=== PATIENT | male | born 1955 | race African-American/Black ===

== ENCOUNTER 2017-04-12 14:51 | Inpatient (IN) ==
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
--- NOTE | 2017-04-12 15:55 | XRay Report ---
XR chest 1V portable Indication: Cardiomegaly Comparison: None. Technique: Portable AP chest was performed. Findings: The heart size appears within normal limits. Pulmonary vasculature demonstrates no specific abnormality. Hilar structures demonstrate fairly symmetric appearance. The lungs appear clear. Bones and soft tissues demonstrate no evidence of acute pathology. Right-sided rotator cuff tear is suggested. Impression: 1. No evidence of cardiomegaly. 04/12/2017 3:52 PM PROCEDURE INTERPRETED AT [facility] DEPARTMENT OF RADIOLOGY Final Report Signed by: Dr. Juan José Pinto
--- NOTE | 2017-04-12 15:58 | CT Report ---
CT head/brain wo con Indication: Hemiparesis. Laterality not specified Comparison: CT head 03/20/2006 Technique: CT of the brain was performed without administration of intravenous contrast. The CT examination was performed using one or more of the following dose reduction techniques: Automatic exposure control, adjustment of the mA and kV according to patient size, use of acute or iterative reconstruction techniques. Findings: There is no evidence of acute intracranial mass, hemorrhage, or infarction. Generalized cerebral atrophy is present. Remote infarction involving the right parietal cortex and white matter is stable. Areas of decreased attenuation within the periventricular white matter and cerebral white matter are present which could be compatible with microvascular ischemia. The basal cisterns are patent. No significant abnormality is demonstrated to involve the posterior fossa or cerebellum. Orbits and globes demonstrate no evidence of significant pathology. The paranasal sinuses are clear. No significant abnormality is demonstrated to involve the mastoid air cells. The calvarium and overlying soft tissues demonstrate no evidence of acute pathology. Impression: 1. No CT evidence of acute intracranial pathology. Remote right parietal infarct has changed little since comparison study. No other sources of hemiparesis are demonstrated. MRI brain without intravenous contrast administration is recommended to exclude acute ischemia. 04/12/2017 3:54 PM PROCEDURE INTERPRETED AT [facility] DEPARTMENT OF RADIOLOGY Final Report Signed by: Dr. Juan José Pinto
[2017-04-12] MEDS ORDERED: PROMETHAZINE 25 MG/1 ML VIAL IM PRN (16:14)
[2017-04-12] MEDS ORDERED: guaiFENesin/DM ER 600-30 MG TABLET PO PRN (16:14)
[2017-04-12] MEDS ORDERED: ONDANSETRON 4 MG/2 ML VIAL IV PRN (16:14)
[2017-04-12] MEDS ORDERED: GLUCAGON 1 MG VIAL IM PRN (16:14)
[2017-04-12] MEDS ORDERED: LABETALOL 20 MG/4 ML SYRINGE IV PRN (16:14)
[2017-04-12] MEDS ORDERED: DEXTROSE 50% 25 GM/50 ML VIAL IV PRN (16:14)
[2017-04-12] MEDS ORDERED: ACETAMINOPHEN 325 MG TABLET PO PRN (16:14)
[2017-04-12] MEDS ORDERED: diphenhydrAMINE CAP 25 MG CAPSULE PO PRN (16:14)
[2017-04-12] MEDS ORDERED: MORPHINE 2 MG/1 ML SYRINGE IV PRN (16:14)
[2017-04-12] MEDS ORDERED: DOCUSATE SODIUM 100 MG CAPSULE PO PRN (16:14)
--- NOTE | 2017-04-12 16:19 | Event Note ---
I have seen and examined the patient an I agree with the assessment and plan as outline by Makayla HENRY. Mr King presents with hemiplegia. CT negative for acute stroke. Will admit to observation and obtain an MRI, echo, carotid US. Consult Neurology. Basic labs have not returned at the time of this note.
--- NOTE | 2017-04-12 16:29 | EKG Report ---
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
[2017-04-12 16:32] LABS: Basophils % 0.5 % (0.0-0.8); Eosinophils # 0.2 10*3/uL (0.0-0.87); Eosinophils % 2.8 % (0.00-10.9); Hematocrit 46.4 VOL% (42.0-52.0); Hemoglobin 16.2 GM/DL (14.0-18.0); Immature Granulocytes % 0.5 %; Immature Granulocytes Absolute 0.03 #; Lymphocytes # 1.8 10*3/uL (1.4-4.0); Lymphocytes % 29.2 % (21.2-54.2); Mean Corpuscular HGB Conc 34.9 GM/DL (32-36); Mean Corpuscular Hemoglobin 31 PG (27-34); Mean Corpuscular Volume 87.5 FL (87-102); Mean Platelet Volume 11.2 FL (9.6-12.0); Monocytes # 0.7 10*3/uL (0.11-0.8); Neutrophils # 3.4 10*3/uL (1.4-7.4); Platelet Count 221 T/CUMM (130-400); Red Cell Distribution Width 12.4 % (9.3-17.3)
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
[2017-04-12 16:47] LABS: PT Patient Result 10.5 SECS; Partial Thromboplastin Time 24.3 SECS (0-40)
[2017-04-12 16:48] LABS: Apearance,Urine CLEAR (Clear); Bilirubin,Urine Negative (Negative); Blood, Urine Negative (Negative); Glucose,Urine (UA) >=500 mg/dL (Negative); Ketones,Urine Negative (Negative); Mucus,Urine Occasional /LPF (Occasional); Nitrite,Urine Negative (Negative); Protein,Urine Negative; RBC,Urine 1 /HPF (0-4); Squamous Epithelial Cell,Urine Occasional /HPF (0-10); Urine Color Straw (Yellow); Urine Specific Gravity 1.028 (1.001-1.035); Urine Urobilinogen < 2.0 EU/DL (0.2-1.0); WBC,Urine <1 /HPF (0-6)
[2017-04-12 16:59] LABS: Alanine Aminotransferase 49 U/L (16-61); Albumin 3.6 G/DL (3.4-5.0); Alkaline Phosphatase 231 U/L (45-117); Aspartate Amino Transferase 31 U/L (0-37); Blood Urea Nitrogen 19 MG/DL (7-18); Calcium 9.3 MG/DL (8.5-10.1); Cholesterol 168 MG/DL (50-200); HDL Cholesterol 32 MG/DL (40-60); Osmolality,Calculated 291.5 MOS/KG (273-304); Potassium 4.8 MMOL/L (3.5-5.1); Risk Ratio 5.25; Sodium 132 MMOL/L (136-145); Total Protein 7.8 G/DL (6.4-8.3); Triglycerides 469 MG/DL (2-150); Troponin I Only < 0.015 NG/ML (0.00-0.045); VLDL CHOLESTEROL 93.8 MG/DL
[2017-04-12 17:02] LABS: Glucose 568 MG/DL (74-106)
[2017-04-12] MEDS ORDERED: INSULIN LISPRO 100 UNIT/ML SUBCUT ONE ×2 (17:02→17:23)
[2017-04-12 17:03] LABS: Barbiturates Screen,Urine Negative (Negative); Benzodiazepines Screen,Urine Negative (Negative); Cannabinoid Screen,Urine Negative (Negative); Opiate Screen,Urine Negative (Negative); Phencyclidine Screen,Urine Negative (Negative)
--- NOTE | 2017-04-12 17:38 | Ultrasound Report ---
US carotid duplex BI Indication: Acute neurologic change. Comparison: None. Technique: Using transcutaneous probe, routine carotid arterial duplex ultrasound performed. Ultrasound images were captured and stored. Estimation of stenosis will be made using indirect NASCET criteria. Ultrasound images were captured and stored. Findings: Grayscale and color Doppler findings: Calcified plaque is demonstrated within the right carotid artery bulb. This to some degree shadows the color flow within the bulb. Transverse images suggest moderate stenosis of the bulb. The left carotid artery bulb additionally demonstrates presence of minimally echogenic plaque as well as some areas of echolucent plaque. Transverse images suggest minimal stenosis. Peak systolic velocities are as follows (centimeters per second): Right CCA: 66. Right proximal ICA: 37. Right distal ICA: 67. Right ICA/CCA ratio: 1.0. Left CCA: 57. Left proximal ICA: 39. Left distal ICA: 55. Left ICA/CCA ratio: 1.0. External carotid arteries: External carotid arteries are bilaterally patent. Vertebral arteries: Vertebral arteries bilaterally demonstrate antegrade flow. Impression: 1.No hemodynamically significant stenosis is estimated to involve either carotid arterial system. 04/12/2017 5:33 PM PROCEDURE INTERPRETED AT [facility] DEPARTMENT OF RADIOLOGY Final Report Signed by: Dr. Juan José Pinto
[2017-04-12] MEDS: ASPIRIN 325 MG TABLET PO SCH (18:32)
[2017-04-12] MEDS: SODIUM CHLORIDE 0.9% 1,000 ML IV SCH (18:33)
[2017-04-12] MEDS: POLYETHYLENE GLYCOL POWDER 17 GM PACK PO SCH (18:33)
[2017-04-12] MEDS: TAMSULOSIN 0.4 MG CAPSULE PO SCH (18:33)
[2017-04-12] MEDS: CLOPIDOGREL 75 MG TABLET PO SCH ×2 (18:34→19:22)
[2017-04-12] MEDS: LISINOPRIL 20 MG TABLET PO SCH (18:34)
[2017-04-12] MEDS: FELODIPINE 5 MG TABLET PO SCH (18:38)
[2017-04-12] MEDS: PANTOPRAZOLE 40 MG TABLET PO SCH (18:39)
[2017-04-12 19:29] LABS: Troponin I Only < 0.015 NG/ML (0.00-0.045)
[2017-04-12] MEDS ORDERED: INSULIN GLARGINE 100 UNIT/ML SUBCUT SCH (21:00)
[2017-04-12] MEDS ORDERED: ATORVASTATIN 40 MG TABLET PO SCH (21:00)
[2017-04-12] MEDS: MAGNESIUM CHLORIDE 64 MG TABLET PO SCH (21:29)
[2017-04-12] MEDS: levETIRAcetam 500 MG TABLET PO SCH (21:29)
[2017-04-12] MEDS: INSULIN REGULAR 100 UNIT/ML SUBCUT SCH (21:30)
[2017-04-12 22:34] LABS: Troponin I Only < 0.015 NG/ML (0.00-0.045)
[2017-04-13 02:58] LABS: Basophils % 0.5 % (0.0-0.8); Eosinophils # 0.2 10*3/uL (0.0-0.87); Eosinophils % 3.3 % (0.00-10.9); Hematocrit 41.2 VOL% (42.0-52.0); Hemoglobin 14.3 GM/DL (14.0-18.0); Immature Granulocytes % 0.5 %; Immature Granulocytes Absolute 0.03 #; Lymphocytes % 34.1 % (21.2-54.2); Mean Corpuscular HGB Conc 34.7 GM/DL (32-36); Mean Corpuscular Hemoglobin 30 PG (27-34); Mean Corpuscular Volume 87.1 FL (87-102); Mean Platelet Volume 11.5 FL (9.6-12.0); Monocytes # 0.7 10*3/uL (0.11-0.8); Monocytes % 11.5 % (1.7-12.7); Neutrophils # 2.9 10*3/uL (1.4-7.4); Neutrophils % 50.1 % (38.7-73.9); Platelet Count 204 T/CUMM (130-400); Red Blood Count 4.73 MC/CUMM (3.8-5.5); Red Cell Distribution Width 12.4 % (9.3-17.3); White Blood Count 5.8 T/CUMM (4-12)
[2017-04-13 03:57] LABS: Calcium 8.8 MG/DL (8.5-10.1); Magnesium 1.6 MG/DL (1.8-2.4); Potassium 4.3 MMOL/L (3.5-5.1); Thyroid Stimulating Hormone 0.694 uIU/ml (0.358-3.74)
[2017-04-13 04:00] LABS: Risk Ratio 4.75; VLDL CHOLESTEROL 71.6 MG/DL
[2017-04-13] MEDS: PANTOPRAZOLE 40 MG TABLET PO SCH (08:59)
[2017-04-13] MEDS: MAGNESIUM CHLORIDE 64 MG TABLET PO SCH (08:59)
[2017-04-13] MEDS: ASPIRIN 325 MG TABLET PO SCH (08:59)
[2017-04-13] MEDS: TAMSULOSIN 0.4 MG CAPSULE PO SCH (08:59)
[2017-04-13] MEDS: levETIRAcetam 500 MG TABLET PO SCH (08:59)
[2017-04-13] MEDS: CLOPIDOGREL 75 MG TABLET PO SCH (08:59)
[2017-04-13] MEDS: SODIUM CHLORIDE 0.9% 1,000 ML IV SCH (09:00)
[2017-04-13] MEDS: LISINOPRIL 20 MG TABLET PO SCH (09:00)
[2017-04-13] MEDS ORDERED: MAGNESIUM SULF RIDER 4 GM in PREMIX 1 EACH IV ONE (09:00)
[2017-04-13] MEDS: POLYETHYLENE GLYCOL POWDER 17 GM PACK PO SCH (09:01)
[2017-04-13] MEDS: FELODIPINE 5 MG TABLET PO SCH (09:01)
[2017-04-13] MEDS: INSULIN REGULAR 100 UNIT/ML SUBCUT SCH (09:47)
--- NOTE | 2017-04-13 12:24 | Magnetic Resonance Report ---
Exam: MR head/brain wo con Date: 04/13/2017 4:19 PM Comparison: 03/18/2016, CT brain 04/12/2017 Indication: Left-sided weakness Technique:[Multiple acquisitions were obtained including sagittal T1, coronal T2, and axial ADC, diffusion, FLAIR, T2, GRE, and T1 scans without contrast only. Scans were obtained on a 1.5 Jovana magnet.] Findings: The ventricles are normal in size with no midline displacement. The pituitary has a normal appearance and the cerebellar tonsils are normal in their location. No acute infarction is identified on the diffusion scans. Rather there is a large chronic right temporal, parietal, and occipital lobe infarction. Additional chronic infarcts in the right frontal lobe/corpus callosum, right frontal lobe deep white matter location, and right cerebellum. No evidence of hemorrhage, mass, extracerebral collection. Extensive atrophy and FLAIR/T2 hyperintensities. No acute findings in the paranasal sinuses, orbits, temporal bones, or [place] post[place] of [place]. Impression: No acute infarction identified on the diffusion scans. Rather there are multiple chronic infarcts as above noted. Persistent atrophy and extensive microvascular disease. PROCEDURE INTERPRETED AT [facility] DEPARTMENT OF RADIOLOGY Final Report Signed by: Dr. Emelyn Tadeo
--- NOTE | 2017-04-13 12:59 | Discharge Summary ---
Hospital Course - Hospital Course Hospital Course: Mr Velarde was admitted for evaluation of left sided weakness. 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 MRI of his brain revealed no acute infarctions. Carotid US was unremarkable. He will continue his medications which are optimal at discharge. By discharge she was at baseline had met maximum benefit of hospitalization. I spent 36 minutes coordinating this discharge. - Time spent with patient Time with patient DS: Greater than 30 minutes Discharge Plan - Discharge Data Disposition: Disch To Home/Self Care Condition at Discharge: Stable Discharge Diet: advance to your usual diet Activity: resume usual activities as tolerated Hygiene: no restrictions - Discharge Medications Continue Lisinopril 20 mg PO DAILY Metformin HCl [Metformin HCl ER] 1,000 mg PO BID Clopidogrel [Plavix] 75 mg PO DAILY Felodipine [Plendil] 10 mg PO DAILY levETIRAcetam TAB [Keppra Tab] 500 mg PO BID #120 tablet Pantoprazole Tab [Protonix Tab] 40 mg PO BID #60 tablet Polyethylene Glycol Powder [Miralax] 17 gm PO DAILY #12 pack Magnesium Chloride [Slow Mag] 64 mg PO BID #60 tablet Insulin Glargine [Lantus] 15 unit SUBCUT BEDTIME Atorvastatin [Lipitor] 40 mg PO BEDTIME Aspirin Tab 325 mg PO DAILY tablet Tamsulosin [Flomax] 0.4 mg PO DAILY capsule Promethazine Tab [Phenergan Tab] 25 mg PO Q6H PRN PRN Reason: Nausea HYDROcodone/ACETAMIN 10-325 [[place] 10-325] 1 tablet PO Q6H PRN PRN Reason: Pain - Follow Up or Referral - Forms/Instructions Exam - Constitutional Vitals: Period Temp Pulse Resp BP Sys/Horvath Pulse Ox Last 24 Hr 97.5 F-98.6 F 66-95 20-20 101-162/72-78 95-97 General appearance: normal weight, no acute distress - Head Head exam: Present: normal inspection, normocephalic, atraumatic - Eye Eye exam: Present: EOMI Pupils: Present: TACHO - ENT ENT exam: Present: normal exam - Neck Neck exam: Present: normal inspection - Respiratory Respiratory exam: Present: clear to auscultation bilaterally. Absent: accessory muscle use, prolonged expiratory phase, wheezes - Cardiovascular Cardiovascular exam: Present: regular rate and rhythm. Absent: bradycardia, irregular rhythm, systolic murmur - GI/Abdominal GI/Abdominal exam: Present: normal bowel sounds. Absent: ascites, distended, hypoactive bowel sounds, tenderness - Extremities Exam Extremities exam: Present: normal inspection Discharge Results Labs on day of discharge: Labs from last 24 hours 04/13/17 04/13/17 04/13/17 07:22 01:50 01:50 WBC RBC Hgb Hct MCV MCH MCHC RDW Plt Count MPV Neut % (Auto) Lymph % (Auto) [place] % (Auto) Eos % (Auto) Baso % (Auto) Neut # (Auto) Lymph # (Auto) [place] # (Auto) Eos # (Auto) Baso # (Auto) Immature Gran % Nucleated RBC % Immature Gran # Nucleated RBCs # INR PT Patient/Control Mix Circ Anticoag PTT Sodium 136 Potassium 4.3 Chloride 101 Carbon Dioxide 26 Anion Gap 13.3 BUN 20 H Creatinine 1.30 GFR Calculation 82 BUN/Creatinine Ratio 15.00 Glucose 290 H POC Glucose 405 H Hemoglobin A1c Calculated Osmolality 285.0 Calcium 8.8 Magnesium 1.6 L Total Bilirubin AST ALT Alkaline Phosphatase Troponin I Total Protein Albumin Globulin Albumin/Globulin Ratio Triglycerides 358 H Cholesterol 133 LDL Cholesterol 53.0 VLDL Cholesterol 71.6 HDL Cholesterol 28 L Heart Disease Risk Ratio 4.75 TSH 3rd Generation 0.694 Urine Color Urine Appearance Urine pH Ur Specific [place] Urine Protein Urine Glucose (UA) Urine Ketones Urine Blood Urine Nitrate Urine Bilirubin Urine Urobilinogen Urine Leukocytes Urine RBC Urine WBC Ur Squamous Epith Cells Urine Mucus Ur Culture Indicated? Urine Opiates Screen Ur Barbiturates Screen Ur Phencyclidine Scrn U Amphetamine/Methamph U Benzodiazepines Scrn U Cocaine Metab Screen U Cannabinoids Screen Serum Alcohol 04/13/17 04/12/17 04/12/17 01:50 23:46 21:47 WBC 5.8 RBC 4.73 Hgb 14.3 Hct 41.2 L MCV 87.1 MCH 30 MCHC 34.7 RDW 12.4 Plt Count 204 MPV 11.5 Neut % (Auto) 50.1 Lymph % (Auto) 34.1 Baxter % (Auto) 11.5 Eos % (Auto) 3.3 Baso % (Auto) 0.5 Neut # (Auto) 2.9 Lymph # (Auto) 2.0 Baxter # (Auto) 0.7 Eos # (Auto) 0.2 Baso # (Auto) 0.0 Immature Gran % 0.5 Nucleated RBC % 0.0 Immature Gran # 0.03 Nucleated RBCs # 0.00 INR PT Patient/Control Mix Circ Anticoag PTT Sodium Potassium Chloride Carbon Dioxide Anion Gap BUN Creatinine GFR Calculation BUN/Creatinine Ratio Glucose 437 POC Glucose 323 H Hemoglobin A1c Calculated Osmolality Calcium Magnesium Total Bilirubin AST ALT Alkaline Phosphatase Troponin I < 0.015 Total Protein Albumin Globulin Albumin/Globulin Ratio Triglycerides Cholesterol LDL Cholesterol VLDL Cholesterol HDL Cholesterol Heart Disease Risk Ratio TSH 3rd Generation Urine Color Urine Appearance Urine pH Ur Specific [place] Urine Protein Urine Glucose (UA) Urine Ketones Urine Blood Urine Nitrate Urine Bilirubin Urine Urobilinogen Urine Leukocytes Urine RBC Urine WBC Ur Squamous Epith Cells Urine Mucus Ur Culture Indicated? Urine Opiates Screen Ur Barbiturates Screen Ur Phencyclidine Scrn U Amphetamine/Methamph U Benzodiazepines Scrn U Cocaine Metab Screen U Cannabinoids Screen Serum Alcohol 04/12/17 04/12/17 04/12/17 21:14 18:54 18:23 WBC RBC Hgb Hct MCV MCH MCHC RDW Plt Count MPV Neut % (Auto) Lymph % (Auto) [place] % (Auto) Eos % (Auto) Baso % (Auto) Neut # (Auto) Lymph # (Auto) [place] # (Auto) Eos # (Auto) Baso # (Auto) Immature Gran % Nucleated RBC % Immature Gran # Nucleated RBCs # INR PT Patient/Control Mix Circ Anticoag PTT Sodium Potassium Chloride Carbon Dioxide Anion Gap BUN Creatinine GFR Calculation BUN/Creatinine Ratio Glucose 437 POC Glucose > 500 H* 445 H Hemoglobin A1c Calculated Osmolality Calcium Magnesium Total Bilirubin AST ALT Alkaline Phosphatase Troponin I < 0.015 Total Protein Albumin Globulin Albumin/Globulin Ratio Triglycerides Cholesterol LDL Cholesterol VLDL Cholesterol HDL Cholesterol Heart Disease Risk Ratio TSH 3rd Generation Urine Color Urine Appearance Urine pH Ur Specific [place] Urine Protein Urine Glucose (UA) Urine Ketones Urine Blood Urine Nitrate Urine Bilirubin Urine Urobilinogen Urine Leukocytes Urine RBC Urine WBC Ur Squamous Epith Cells Urine Mucus Ur Culture Indicated? Urine Opiates Screen Ur Barbiturates Screen Ur Phencyclidine Scrn U Amphetamine/Methamph U Benzodiazepines Scrn U Cocaine Metab Screen U Cannabinoids Screen Serum Alcohol 04/12/17 04/12/17 04/12/17 16:07 16:07 16:07 WBC RBC Hgb Hct MCV MCH MCHC RDW Plt Count MPV Neut % (Auto) Lymph % (Auto) [place] % (Auto) Eos % (Auto) Baso % (Auto) Neut # (Auto) Lymph # (Auto) [place] # (Auto) Eos # (Auto) Baso # (Auto) Immature Gran % Nucleated RBC % Immature Gran # Nucleated RBCs # INR 1.0 PT Patient/Control Mix 10.5 Circ Anticoag PTT 24.3 Sodium 132 L Potassium 4.8 Chloride 95 L Carbon Dioxide 25 Anion Gap 16.8 H BUN 19 H Creatinine 1.60 H GFR Calculation 67 BUN/Creatinine Ratio 11.00 Glucose 568 H* POC Glucose Hemoglobin A1c 10.9 H Calculated Osmolality 291.5 Calcium 9.3 Magnesium Total Bilirubin 0.50 AST 31 ALT 49 Alkaline Phosphatase 231 H Troponin I < 0.015 Total Protein 7.8 Albumin 3.6 Globulin 4.2 H Albumin/Globulin Ratio 0.8 L Triglycerides 469 H Cholesterol 168 LDL Cholesterol 71.0 VLDL Cholesterol 93.8 HDL Cholesterol 32 L Heart Disease Risk Ratio 5.25 TSH 3rd Generation Urine Color Urine Appearance Urine pH Ur Specific [place] Urine Protein Urine Glucose (UA) Urine Ketones Urine Blood Urine Nitrate Urine Bilirubin Urine Urobilinogen Urine Leukocytes Urine RBC Urine WBC Ur Squamous Epith Cells Urine Mucus Ur Culture Indicated? Urine Opiates Screen Ur Barbiturates Screen Ur Phencyclidine Scrn U Amphetamine/Methamph U Benzodiazepines Scrn U Cocaine Metab Screen U Cannabinoids Screen Serum Alcohol < 15 L 04/12/17 04/12/17 04/12/17 16:07 16:07 16:07 WBC 6.0 RBC 5.30 Hgb 16.2 Hct 46.4 MCV 87.5 MCH 31 MCHC 34.9 RDW 12.4 Plt Count 221 MPV 11.2 Neut % (Auto) 56.0 Lymph % (Auto) 29.2 [place] % (Auto) 11.0 Eos % (Auto) 2.8 Baso % (Auto) 0.5 Neut # (Auto) 3.4 Lymph # (Auto) 1.8 [place] # (Auto) 0.7 Eos # (Auto) 0.2 Baso # (Auto) 0.0 Immature Gran % 0.5 Nucleated RBC % 0.0 Immature Gran # 0.03 Nucleated RBCs # 0.00 INR PT Patient/Control Mix Circ Anticoag PTT Sodium Potassium Chloride Carbon Dioxide Anion Gap BUN Creatinine GFR Calculation BUN/Creatinine Ratio Glucose POC Glucose Hemoglobin A1c Calculated Osmolality Calcium Magnesium Total Bilirubin AST ALT Alkaline Phosphatase Troponin I Total Protein Albumin Globulin Albumin/Globulin Ratio Triglycerides Cholesterol LDL Cholesterol VLDL Cholesterol HDL Cholesterol Heart Disease Risk Ratio TSH 3rd Generation Urine Color Straw Urine Appearance Clear Urine pH 6.0 Ur Specific [place] 1.028 Urine Protein Negative Urine Glucose (UA) >=500 Urine Ketones Negative Urine Blood Negative Urine Nitrate Negative Urine Bilirubin Negative Urine Urobilinogen < 2.0 H Urine Leukocytes Negative Urine RBC 1 Urine WBC <1 Ur Squamous Epith Cells Occasional Urine Mucus Occasional Ur Culture Indicated? Not indicated Urine Opiates Screen Negative Ur Barbiturates Screen Negative Ur Phencyclidine Scrn Negative U Amphetamine/Methamph Negative U Benzodiazepines Scrn Negative U Cocaine Metab Screen Negative U Cannabinoids Screen Negative Serum Alcohol DS: Provider Date of admission: 04/12/17 15:58 Primary care physician: . No PCP Attending physician on admission: Macy Jimenez MD Consults: 04/12/17 16:14 Consult to Case Mgmt/Social Srvs [CONS] Routine Reason for Case Mgmt/Social Srvs: Discharge Planning Consult to Occupational Therapy [CONS] Routine Reason for Occupational Therapy: Evaluate and Treat Consult Comment: Stroke Consult to Physical Therapy [CONS] Routine Reason for Physical Therapy: Evaluate and Treat Consult Comment: stroke Consult to Physician [CONS] Routine Comment: KITTY/LE weakness Consulting Provider: David Sol When should Consulting Provider be notified: In am Consult to Speech Therapy [CONS] Routine Reason for Speech Therapy: CVA Consult Comment: with/without possible aspiration 04/12/17 16:24 Consult to [facility], Educator [CONS] Routine Reason for Railroad Inspector: Diabetes Education Discharging clinician: Macy Jimenez MD Expected date of discharge: 04/13/17
[2017-04-13 16:32] VITALS: BP 101/69
--- NOTE | 2017-04-13 19:00 | ECHO Report ---
Luis Velarde Exam Date: 04/13/2017 09:12 Referring Physician: Technologist: Ny Zheng Age: 61 Ht (in): 69 Wt (lb): 220 Gender: M Exam Location: [facility] Echo Indications: BP: 115 / 72 HR: 67 Rhythm: Sinus Technical Quality: Fair IMPRESSIONS Normal LV systolic function, ejection fraction 65%. Grade 1/4 diastolic dysfunction. Trace mitral regurgitation. MEASUREMENTS (Male / Female) Normal Values 2D ECHO LV Diastolic Diameter PLAX 4.2 cm 4.2 - 5.9 / 3.9 - 5.3 cm LV Systolic Diameter PLAX 2.5 cm LV Fractional Shortening PLAX 40.7 % IVS Diastolic Thickness 1.1 cm 0.6 - 1.0 / 0.6 - 0.9 cm LVPW Diastolic Thickness 0.9 cm 0.6 - 1.0 / 0.6 - 0.9 cm RV Internal Dim ED PLAX 2.9 cm Aortic Root Diameter 2.9 cm LA Systolic Diameter LX 3.1 cm 3.0 - 4.0 / 2.7 - 3.8 cm FINDINGS Left Ventricle Normal left ventricular cavity size. Normal left ventricular wall thickness. Left ventricular ejection fraction is estimated at 65 %. Right Ventricle Normal size. Right Atrium Normal size. Left Atrium The left atrium is normal in size. Mitral Valve Morphologically normal mitral valve. Trace mitral valve regurgitation. Aortic Valve Aortic valve sclerosis without stenosis or regurgitation. Tricuspid Valve Morphologically normal tricuspid valve without significant stenosis or regurgitation. Pulmonary artery systolic pressure is normal. Pulmonic Valve Morphologically normal pulmonic valve without significant stenosis. There is no pulmonic regurgitation. Pericardium Normal pericardium without effusion. Aorta Normal ascending aorta dimension. Nora Healy MD (Electronically Signed) Final Date: 13 Apr 2017 18:59
== END 2017-04-13 16:13 | disposition home or self-care (01) | DRG 57 ==
LOC: N.ED 14:51 → N.EDINP 15:58 → N.2E 16:20
PROVIDERS: ADMIT Internal Medicine; ATTEND Internal Medicine

== ENCOUNTER 2017-05-31 20:35 | Inpatient (IN) ==
[2017-05-31] MEDS ORDERED: SODIUM CHLORIDE 0.9% 2,000 ML IV STA ×2 (20:51→22:04)
[2017-05-31] MEDS ORDERED: INSULIN REGULAR 100 UNIT/ML IV STA ×2 (20:51→22:03)
[2017-05-31] MEDS ORDERED: PANTOPRAZOLE 40 MG VIAL IV STA (20:51)
[2017-05-31] MEDS ORDERED: ONDANSETRON 4 MG/2 ML VIAL IV STA (20:51)
[2017-05-31] MEDS ORDERED: METOCLOPRAMIDE 10 MG/2 ML VIAL IV STA (20:51)
[2017-05-31] MEDS ORDERED: INSULIN REGULAR 100 UNIT/ML SUBCUT STA (20:51)
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
[2017-05-31] MEDS ORDERED: METOCLOPRAMIDE 10 MG/2 ML VIAL ONE (21:10)
[2017-05-31] MEDS ORDERED: ONDANSETRON 4 MG/2 ML VIAL ONE (21:10)
[2017-05-31] MEDS ORDERED: PANTOPRAZOLE 40 MG VIAL IV ONE (21:10)
[2017-05-31] MEDS ORDERED: INSULIN REGULAR 100 UNIT/ML ONE (21:12)
[2017-05-31 21:14] LABS: Basophils % 0.3 % (0.0-0.8); Eosinophils # 0.1 10*3/uL (0.0-0.87); Eosinophils % 1.5 % (0.00-10.9); Hematocrit 40.6 VOL% (42.0-52.0); Hemoglobin 14.7 GM/DL (14.0-18.0); Immature Granulocytes % 0.4 %; Immature Granulocytes Absolute 0.03 #; Lymphocytes # 1.5 10*3/uL (1.4-4.0); Lymphocytes % 20.3 % (21.2-54.2); Mean Corpuscular HGB Conc 36.2 GM/DL (32-36); Mean Corpuscular Hemoglobin 31 PG (27-34); Mean Corpuscular Volume 84.9 FL (87-102); Mean Platelet Volume 11.6 FL (9.6-12.0); Monocytes # 0.6 10*3/uL (0.11-0.8); Monocytes % 8.4 % (1.7-12.7); Neutrophils # 4.9 10*3/uL (1.4-7.4); Neutrophils % 69.1 % (38.7-73.9); Platelet Count 212 T/CUMM (130-400); Red Blood Count 4.78 MC/CUMM (3.8-5.5); White Blood Count 7.1 T/CUMM (4-12)
[2017-05-31 21:37] LABS: Alanine Aminotransferase 41 U/L (16-61); Albumin 3.3 G/DL (3.4-5.0); Alkaline Phosphatase 290 U/L (45-117); Amylase 114 U/L (25-115); Aspartate Amino Transferase 18 U/L (0-37); Bilirubin,Total < 0.39 MG/DL (0.2-1.0); Blood Urea Nitrogen 46 MG/DL (7-18); Calcium 9.5 MG/DL (8.5-10.1); Osmolality,Calculated 309.6 MOS/KG (273-304); Potassium 5.3 MMOL/L (3.5-5.1); Sodium 124 MMOL/L (136-145); Total Protein 7.2 G/DL (6.4-8.3)
[2017-05-31 21:40] LABS: Glucose 972 MG/DL (74-106)
[2017-05-31 21:45] LABS: Troponin I Only < 0.015 NG/ML (0.00-0.045)
[2017-05-31] MEDS ORDERED: POLYETHYLENE GLYCOL POWDER 17 GM PACK PO PRN (22:54)
[2017-05-31] MEDS ORDERED: SODIUM CHLORIDE 0.9% 1,000 ML IV ONE (22:58)
[2017-05-31] MEDS ORDERED: MAGNESIUM SULF RIDER 2 GM in PREMIX 1 EACH IV PRN (22:58)
[2017-05-31] MEDS ORDERED: DEXTROSE 50% 25 GM/50 ML VIAL IV PRN ×2 (22:58)
[2017-05-31] MEDS ORDERED: BISACODYL 5 MG TABLET PO PRN (22:58)
[2017-05-31] MEDS ORDERED: SODIUM BICARB INJ 100 MEQ in STERILE WATER INJ 400 ML IV PRN (22:58)
[2017-05-31] MEDS ORDERED: MORPHINE 2 MG/1 ML SYRINGE IV PRN (22:58)
[2017-05-31] MEDS ORDERED: ONDANSETRON 4 MG/2 ML VIAL IV PRN (22:58)
[2017-05-31] MEDS ORDERED: INSULIN REGULAR 100 UNIT/ML IV ONE (22:58)
[2017-05-31] MEDS ORDERED: SODIUM PHOSPHATE IV PRN (22:58)
[2017-05-31] MEDS ORDERED: ALBUTEROL/IPRATROPIUM 3 ML NEB RESP TX PRN (22:58)
[2017-05-31] MEDS ORDERED: SODIUM CHLORIDE 0.9% IV PRN (22:58)
[2017-05-31] MEDS ORDERED: ACETAMINOPHEN 325 MG TABLET PO PRN (22:58)
[2017-05-31] MEDS ORDERED: MAGNESIUM SULF RIDER 4 GM in PREMIX 1 EACH IV PRN (22:58)
[2017-05-31] MEDS ORDERED: INSULIN REGULAR DRIP 100 ML IV SCH (23:00)
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
[2017-05-31 23:52] LABS: Osmolality,Calculated 304.2 MOS/KG (273-304)
[2017-06-01 00:10] LABS: Apearance,Urine CLEAR (Clear); Bilirubin,Urine Negative (Negative); Blood, Urine Small mg/dL (Negative); Glucose,Urine (UA) >=500 mg/dL (Negative); Hyaline Casts,Urine 4 /LPF (0-3); Ketones,Urine Negative (Negative); Mucus,Urine Occasional /LPF (Occasional); Nitrite,Urine Negative (Negative); Protein,Urine Negative; RBC,Urine 1 /HPF (0-4); Squamous Epithelial Cell,Urine Occasional /HPF (0-10); Urine Color Yellow (Yellow); Urine Urobilinogen < 2.0 EU/DL (0.2-1.0); WBC,Urine 1 /HPF (0-6)
[2017-06-01] MEDS ORDERED: INSULIN REGULAR 100 UNIT/ML ONE (00:13)
[2017-06-01 01:00] LABS: ABG Base Excess -2.7 MMOL/L (-2.5-2.5); ABG HCO3 22.1 MMOL/L (20-26); ABG Oxygen Saturation 94.9 % (95-100); ABG PCO2 44.4 MM HG (35-48); ABG PH 7.329 (7.35-7.45); ABG TCO2 20.6 MMOL/L (23-27)
[2017-06-01] MEDS: SODIUM CHLORIDE 0.9% 1,000 ML IV SCH ×2 (01:25→03:04)
[2017-06-01 02:29] LABS: Basophils % 0.3 % (0.0-0.8); Eosinophils # 0.1 10*3/uL (0.0-0.87); Eosinophils % 1.9 % (0.00-10.9); Immature Granulocytes % 0.4 %; Immature Granulocytes Absolute 0.03 #; Lymphocytes # 1.9 10*3/uL (1.4-4.0); Lymphocytes % 25.4 % (21.2-54.2); Mean Corpuscular HGB Conc 36.4 GM/DL (32-36); Mean Corpuscular Hemoglobin 31 PG (27-34); Mean Corpuscular Volume 84.4 FL (87-102); Mean Platelet Volume 11.4 FL (9.6-12.0); Monocytes # 0.9 10*3/uL (0.11-0.8); Monocytes % 11.7 % (1.7-12.7); Neutrophils # 4.5 10*3/uL (1.4-7.4); Neutrophils % 60.3 % (38.7-73.9); Platelet Count 185 T/CUMM (130-400); Red Blood Count 3.91 MC/CUMM (3.8-5.5); Red Cell Distribution Width 11.9 % (9.3-17.3); White Blood Count 7.5 T/CUMM (4-12)
[2017-06-01 02:53] LABS: Calcium 8.4 MG/DL (8.5-10.1); Osmolality,Calculated 290.5 MOS/KG (273-304); Potassium 3.7 MMOL/L (3.5-5.1)
[2017-06-01 02:57] LABS: Lactic Acid 1.4 MMOL/L (0.4-2.0)
[2017-06-01 02:58] LABS: Magnesium 1.8 MG/DL (1.8-2.4); Phosphorous 2.7 MG/DL (2.5-4.9); Troponin I Only < 0.015 NG/ML (0.00-0.045)
[2017-06-01] MEDS: DEXTROSE 5% NACL 0.9% 1,000 ML IV SCH ×2 (03:20→06:51)
[2017-06-01] MEDS ORDERED: SODIUM CHLORIDE 0.9% 1,000 ML IV SCH (03:58)
[2017-06-01] MEDS: POTASSIUM CHLORIDE RIDER 10 MEQ in PREMIX 1 EACH IV PRN ×4 (04:23→19:50)
[2017-06-01 05:09] LABS: Barbiturates Screen,Urine Negative (Negative); Benzodiazepines Screen,Urine Negative (Negative); Cannabinoid Screen,Urine Negative (Negative); Opiate Screen,Urine Negative (Negative); Phencyclidine Screen,Urine Negative (Negative)
--- NOTE | 2017-06-01 07:05 | XRay Report ---
Exam: XR chest 1V portable Indication: Dyspnea Comparison study: 04/12/2017 Findings: The heart, mediastinum and bony structures are stable from prior. Minimal perihilar/medial right basilar interstitial opacities are noted. There is no focal consolidation, pneumothorax or pleural effusion identified. Impression: Development of minimal right infrahilar and medial right lung base interstitial opacities which may represent developing interstitial infiltrates or atelectasis. Otherwise, no significant change. PROCEDURE INTERPRETED AT [facility] (FORMERLY [facility]) DEPARTMENT OF RADIOLOGY Final Report Signed by: Juan Kwon
[2017-06-01 08:56] LABS: Calcium 7.9 MG/DL (8.5-10.1); Osmolality,Calculated 290.1 MOS/KG (273-304); Potassium 3.6 MMOL/L (3.5-5.1)
[2017-06-01] MEDS ORDERED: GLUCAGON 1 MG VIAL IM PRN (09:14)
[2017-06-01] MEDS: SODIUM CHLORIDE 0.45% 1,000 ML IV SCH ×3 (09:44→23:50)
[2017-06-01] MEDS: CLOPIDOGREL 75 MG TABLET PO SCH (10:01)
[2017-06-01] MEDS: INSULIN GLARGINE 100 UNIT/ML SUBCUT SCH (10:01)
[2017-06-01] MEDS: ASPIRIN 325 MG TABLET PO SCH (10:01)
[2017-06-01] MEDS: PANTOPRAZOLE 40 MG TABLET PO SCH ×2 (10:01→20:50)
[2017-06-01] MEDS: TAMSULOSIN 0.4 MG CAPSULE PO SCH (10:01)
[2017-06-01] MEDS: MAGNESIUM CHLORIDE 64 MG TABLET PO SCH ×2 (10:01→20:50)
[2017-06-01] MEDS: levETIRAcetam 500 MG TABLET PO SCH ×2 (10:01→20:50)
[2017-06-01] MEDS: INSULIN ASPART PROTAMINE/ASPART 70/30 100 UNIT/ML SUBCUT SCH ×3 (10:48→16:24)
--- NOTE | 2017-06-01 10:48 | Hospitalist Progress Note ---
Assessment and Plan - Time spent with patient Time spent with patient: Greater than 30 minutes (1) Diabetic hyperosmolar non-ketotic state Status: Acute Assessment and plan: Transition to subcutaneous insulin. Start diabetic diet. Follow-up diabetes education consult. Discontinue IV insulin and dextrose IV fluids. Continue half-normal saline. Repeat chemistries in a.m. Current Visit: Yes (2) Acute renal failure due to tubular necrosis Status: Acute Assessment and plan: Improving with IV fluids Current Visit: Yes (3) Medical non-compliance Status: Acute Assessment and plan: The patient admittedly is noncompliant with his insulin therapy Current Visit: Yes (4) Hypertension Status: Chronic Current Visit: Yes Qualifiers: Hypertension type: essential hypertension Qualified Code(s): I10 - Essential (primary) hypertension (5) History of stroke Status: Chronic Current Visit: No (6) Seizure disorder as sequela of cerebrovascular accident Status: Chronic Current Visit: No (7) Anemia of chronic disease Status: Chronic Current Visit: Yes Hospitalist: Subjective Interval history: Patient seen and examined. No acute events overnight. Case discussed with nursing staff. Labs reviewed. The patient was admitted overnight with uncontrolled hyperglycemia and acute renal failure. He has been receiving IV fluids and IV insulin overnight. His blood sugars have normalized and his serum osmolality has improved. I will plan to transition him over to half- normal saline and resume subcutaneous insulin administration. Diabetic education consult requested. Exam - Constitutional Vitals: Period Temp Pulse Resp BP Sys/Horvath Pulse Ox Last 24 Hr 96.1 F-97.9 F 57-80 10-20 69-116/49-73 85-100 Exam: Constitutional System: No distress. No tremulousness. Resting comfortably. Snoring noted Head: Normocephalic, atraumatic. Ears, Nose and Throat System: No pain or tenderness. No epistaxis or discharge Eyes System: Pupils equal, round, and reactive. Extraocular muscles intact. Neck: Supple, without adenopathy, No jugular venous distention. No thyromegaly, neck mass, or prior surgery apparent. Respiratory System: Chest clear to auscultation. Cardiovascular System: Heart with regular rate and rhythm. No murmur. GI System: Abdomen soft, nontender. Normo active bowel sounds present. Musculoskeletal System: limbs with no pedal edema. Full distal pulses. Results - Labs CBC & BMP: 06/01/17 02:21 06/01/17 08:29 Lab Results: I have reviewed the past 24 hour labs
[2017-06-01] MEDS ORDERED: INSULIN REGULAR 100 UNIT/ML SUBCUT SCH (12:00)
[2017-06-01] MEDS ORDERED: SODIUM CHLORIDE 0.45% 1,000 ML IV SCH (15:58)
[2017-06-01] MEDS: INSULIN REGULAR 100 UNIT/ML SUBCUT SCH ×2 (16:24→20:19)
[2017-06-01] MEDS: ATORVASTATIN 40 MG TABLET PO SCH (20:50)
[2017-06-02] MEDS: INSULIN REGULAR 100 UNIT/ML SUBCUT SCH ×6 (00:30→20:08)
[2017-06-02] MEDS: SODIUM CHLORIDE 0.45% 1,000 ML IV SCH (04:21)
[2017-06-02 06:09] LABS: Calcium 8.1 MG/DL (8.5-10.1); Osmolality,Calculated 282.7 MOS/KG (273-304); Potassium 4.2 MMOL/L (3.5-5.1)
[2017-06-02] MEDS: ASPIRIN 325 MG TABLET PO SCH (09:47)
[2017-06-02] MEDS: TAMSULOSIN 0.4 MG CAPSULE PO SCH (09:47)
[2017-06-02] MEDS: MAGNESIUM CHLORIDE 64 MG TABLET PO SCH ×2 (09:47→20:10)
[2017-06-02] MEDS: INSULIN ASPART PROTAMINE/ASPART 70/30 100 UNIT/ML SUBCUT SCH ×2 (09:47→12:38)
[2017-06-02] MEDS: levETIRAcetam 500 MG TABLET PO SCH ×2 (09:47→20:11)
[2017-06-02] MEDS: CLOPIDOGREL 75 MG TABLET PO SCH (09:47)
[2017-06-02] MEDS: PANTOPRAZOLE 40 MG TABLET PO SCH ×2 (09:48→20:10)
[2017-06-02] MEDS: INSULIN GLARGINE 100 UNIT/ML SUBCUT SCH (09:48)
--- NOTE | 2017-06-02 11:28 | Hospitalist Progress Note ---
Assessment and Plan (1) Diabetic hyperosmolar non-ketotic state Status: Acute Assessment and plan: Patient has improved blood sugar readings. He had not been compliant and now he is on diabetic diet. I will adjust his insulin to more long-acting and some short-acting with meals. The dose has been adjusted to 25 units Lantus insulin daily and 5. Lispro with meals continue to monitor blood sugar and also provide him between as needed short-acting insulin. Continue IV hydration. Noted his sodium was down to 132 I will change the half normal saline to normal saline Current Visit: Yes (2) Anemia Status: Acute Assessment and plan: Hemoglobin is down probably because of hydration I will check the repeat labs in the morning with hemoglobin and hematocrit check a stool Hemoccult Current Visit: Yes (3) Hypertension Status: Chronic Assessment and plan: Controlled Current Visit: Yes Qualifiers: Hypertension type: essential hypertension Qualified Code(s): I10 - Essential (primary) hypertension (4) PATRICIA (acute kidney injury) Status: Acute Assessment and plan: Renal function has been improving keep hydration check labs in the morning Current Visit: No Hospitalist: Subjective Interval history: Mr. Velarde is a 62 year old male with hypertension, insulin-dependent diabetes, and history of recent stroke. He was admitted with symptoms of may relate malaise anorexia and nausea weakness. He has been not taking insulin for about 2 weeks and was noncompliant with diet for ever in ER he was evaluated and noted to have hyperglycemia with a acute kidney injury. His blood sugar was 546 BUN 45 creatinine 2.9. He has been on hydration and insulin regimen here. Currently is on 15 units of Lantus and NPH 3 times a day with meals and as needed insulin on sliding scale Patient say he is feeling much better but still little weak no fever voiding well tolerating food Exam - Constitutional Vitals: Period Temp Pulse Resp BP Sys/Horvath Pulse Ox Last 24 Hr 96.3 F-97.9 F 57-92 10-24 87-132/59-91 93-100 General appearance: no acute distress - Respiratory Respiratory exam: Present: clear to auscultation bilaterally. Absent: accessory muscle use, rales, rhonchi - Cardiovascular Cardiovascular exam: Present: regular rate and rhythm. Absent: tachycardia - GI/Abdominal GI/Abdominal exam: Present: normal bowel sounds, soft. Absent: distended, tenderness - Neurological Exam Neurological exam: Present: alert, oriented X3 Results - Labs CBC & BMP: 06/01/17 02:21 06/02/17 05:19 Lab Results: I have reviewed the past 24 hour labs
[2017-06-02] MEDS: SODIUM CHLORIDE 0.9% 1,000 ML IV SCH (12:50)
[2017-06-02] MEDS: INSULIN LISPRO 100 UNIT/ML SUBCUT SCH ×2 (16:50→20:09)
[2017-06-02] MEDS: ATORVASTATIN 40 MG TABLET PO SCH (20:10)
[2017-06-03] MEDS: INSULIN REGULAR 100 UNIT/ML SUBCUT SCH ×3 (00:23→09:05)
[2017-06-03] MEDS: SODIUM CHLORIDE 0.9% 1,000 ML IV SCH ×2 (00:24→06:39)
[2017-06-03 05:07] LABS: Hematocrit 32.6 VOL% (42.0-52.0); Hemoglobin 11.7 GM/DL (14.0-18.0)
[2017-06-03 05:35] LABS: Calcium 8.2 MG/DL (8.5-10.1); Osmolality,Calculated 281.3 MOS/KG (273-304); Potassium 3.8 MMOL/L (3.5-5.1)
[2017-06-03] MEDS ORDERED: INSULIN GLARGINE 100 UNIT/ML SUBCUT SCH (09:00)
[2017-06-03] MEDS: ASPIRIN 325 MG TABLET PO SCH (09:02)
[2017-06-03] MEDS: MAGNESIUM CHLORIDE 64 MG TABLET PO SCH (09:02)
[2017-06-03] MEDS: PANTOPRAZOLE 40 MG TABLET PO SCH (09:02)
[2017-06-03] MEDS: TAMSULOSIN 0.4 MG CAPSULE PO SCH (09:03)
[2017-06-03] MEDS: CLOPIDOGREL 75 MG TABLET PO SCH (09:03)
[2017-06-03] MEDS: levETIRAcetam 500 MG TABLET PO SCH (09:03)
[2017-06-03] MEDS: INSULIN LISPRO 100 UNIT/ML SUBCUT SCH (09:03)
[2017-06-03 09:44] VITALS: BP 130/72
--- NOTE | 2017-06-03 10:10 | Discharge Summary ---
Hospital Course - Hospital Course Hospital Course: Mr. Velarde is a 62 year old male with hypertension, insulin-dependent diabetes, and history of recent stroke. He was admitted with symptoms of malaise , weakness ,anorexia and nausea . He had not been compliant with the insulin or his diet. He was eating whatever including sweets 4 months and did not take insulin for about 2 weeks. He was admitted on 05/31/2017 and was hypotensive he was hypotensive at the time of admission and noted to have a acute kidney injury with the hyperglycemia his blood sugar was 546 his BUN was 45 and creatinine 2.9 hemoglobin 14.7 hematocrit 40.6. His hemoglobin A1c was more than 15.5 . Patient stated that he knows what to do but he was not following the right directions given to him. And he now understands that he has to be compliant with her diet and medications .he was started and hydration with IV fluids and insulin regimen. He required ICU stay initially but then was transferred to the regular [facility] after he was stabilized. He was on both long-acting insulin and combination of intermediate and short-acting insulin. I had change his regimen to Lantus 25 units daily and 5 mg insulin lispro with meals. Also prescription I wrote for Lantus insulin was 25 unit. To avoid hypoglycemia I have for now cut down to 20 units as his morning blood sugar was 135. To begin with I will try to avoid to strict control of diabetes. He can be further managed as outpatient by his primary care provider. patient is well aware of hypoglycemic symptoms and that he need to hold his insulin if his short -acting insulin if p.o. intake is poor with mealtime . Also told him that he is long-acting insulin dose may be adjusted to up and down based on his blood sugar readings at home and in the clinic. He had no episode of hypoglycemia his blood sugar is progressively improved during stay in the hospital. His renal function also has improved with a BUN of 15 and creatinine 1.1 today. Although his hemoglobin hematocrit was down to 12.0 yesterday he has been aggressively hydrated. This morning his hemoglobin grossly stable at 11.7. Symptomatically the improved and he is stable hemodynamically .We will discharge him on above insulin regimen. His blood pressure medication are held and his blood pressure has been and target at present. He need to monitor her blood sugar and blood pressure at home and follow-up with his provider for further management. I explained that he may need antihypertensive treatment if his blood pressure is above target especially the HIEN inhibitor this. See medication reconciliation for detail. He need to follow-up with the his a primary care provider [facility] Diagnosis - Discharge Diagnosis (1) Diabetic hyperosmolar non-ketotic state Status: Resolved (2) Anemia Status: Chronic (3) Hypertension Status: Chronic (4) PATRICIA (acute kidney injury) Status: Resolved Discharge Plan - Discharge Data Disposition: Disch To Home/Self Care Discharge Diet: diabetic diet Activity: resume usual activities as tolerated - Discharge Medications New Insulin Lispro [HumaLOG] 5 unit SUBCUT ACHS #1 vial Insulin Glargine [Lantus] 20 unit SUBCUT BEDTIME #10 ml Continue Clopidogrel [Plavix] 75 mg PO DAILY levETIRAcetam TAB [Keppra Tab] 500 mg PO BID #120 tablet Pantoprazole Tab [Protonix Tab] 40 mg PO BID #60 tablet Polyethylene Glycol Powder [Miralax] 17 gm PO DAILY #12 pack Magnesium Chloride [Slow Mag] 64 mg PO BID #60 tablet Atorvastatin [Lipitor] 40 mg PO BEDTIME Aspirin Tab 325 mg PO DAILY tablet Tamsulosin [Flomax] 0.4 mg PO DAILY capsule Discontinued Lisinopril 20 mg PO DAILY Metformin HCl [Metformin HCl ER] 1,000 mg PO BID Felodipine [Plendil] 10 mg PO DAILY Insulin Glargine [Lantus] 15 unit SUBCUT BEDTIME Promethazine Tab [Phenergan Tab] 25 mg PO Q6H PRN PRN Reason: Nausea HYDROcodone/ACETAMIN 10-325 [[place] 10-325] 1 tablet PO Q6H PRN PRN Reason: Pain - Follow Up or Referral - Forms/Instructions Exam - Constitutional Vitals: Period Temp Pulse Resp BP Sys/Horvath Pulse Ox Last 24 Hr 97.1 F-98.3 F 69-95 16-20 106-158/68-101 92-99 General appearance: no acute distress - Respiratory Respiratory exam: Present: clear to auscultation bilaterally. Absent: accessory muscle use, rales, rhonchi - Cardiovascular Cardiovascular exam: Present: regular rate and rhythm. Absent: tachycardia - GI/Abdominal GI/Abdominal exam: Present: normal bowel sounds, soft. Absent: distended, tenderness - Neurological Exam Neurological exam: Present: alert, oriented X3 Discharge Results Procedures and tests throughout hospitalization: Pending Orders 05/31/17 00:00 Urine Culture Stat 05/31/17 21:32 Blood Culture Stat 05/31/17 22:58 Blood Culture Stat 06/02/17 11:36 Occult Blood, Stool Routine Labs on day of discharge: Labs from last 24 hours 06/03/17 06/03/17 06/03/17 07:19 05:48 04:34 Hgb Hct Sodium 141 Potassium 3.8 Chloride 111 H Carbon Dioxide 22 Anion Gap 11.8 BUN 15 D Creatinine 1.10 GFR Calculation 105 BUN/Creatinine Ratio 13.00 Glucose 90 POC Glucose 135 H 95 Calculated Osmolality 281.3 Calcium 8.2 L 06/03/17 06/02/17 06/02/17 04:34 23:54 19:35 Hgb 11.7 L Hct 32.6 L Sodium Potassium Chloride Carbon Dioxide Anion Gap BUN Creatinine GFR Calculation BUN/Creatinine Ratio Glucose POC Glucose 238 H 367 H Calculated Osmolality Calcium 06/02/17 06/02/17 15:20 12:15 Hgb Hct Sodium Potassium Chloride Carbon Dioxide Anion Gap BUN Creatinine GFR Calculation BUN/Creatinine Ratio Glucose POC Glucose 354 H 283 H Calculated Osmolality Calcium Preliminary micro results at discharge 05/31/17 00:00 Urine Culture - Preliminary Urine,Catheterized Yeast 06/01/17 02:21 Blood Culture - Preliminary Blood No growth at 1 day 06/01/17 02:21 Blood Culture - Preliminary Blood No growth at 1 day 05/31/17 21:32 Blood Culture - Preliminary Blood No growth at 1 day 05/31/17 21:32 Blood Culture - Preliminary Blood No growth at 1 day DS: Provider Date of admission: 05/31/17 22:58 Primary care physician: . 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
== END 2017-06-03 11:30 | disposition home health service (06) | DRG 682 ==
LOC: N.ED 20:35 → N.EDINP 22:58 → SUATTDRO 22:58 → N.CC 23:41 → N.5E 06-02 01:56
PROVIDERS: ADMIT Internal Medicine; ATTEND Internal Medicine

== ENCOUNTER 2020-08-19 13:25 | Observation (INO) ==
[2020-08-19] MEDS ORDERED: SODIUM CHLORIDE 0.9% 1,000 ML IV STA (13:57)
[2020-08-19 14:20] LABS: Basophils % 0.3 % (0.0-0.8); Eosinophils # 0.2 10*3/uL (0.0-0.87); Eosinophils % 2.9 % (0.00-10.9); Hematocrit 36.9 VOL% (42.0-52.0); Hemoglobin 12.2 GM/DL (14.0-18.0); Immature Granulocytes Absolute 0.07 #; Lymphocytes # 0.9 10*3/uL (1.4-4.0); Lymphocytes % 12.9 % (21.2-54.2); Mean Corpuscular HGB Conc 33.1 GM/DL (32-36); Mean Corpuscular Volume 89.6 FL (87-102); Mean Platelet Volume 10.5 FL (9.6-12.0); Monocytes % 8.3 % (1.7-12.7); Neutrophils % 74.6 % (38.7-73.9); Platelet Count 246 T/CUMM (130-400); Red Blood Count 4.12 MC/CUMM (3.8-5.5); Red Cell Distribution Width 14.2 % (9.3-17.3)
[2020-08-19 14:43] LABS: Alanine Aminotransferase 49 U/L (16-61); Albumin 2.7 G/DL (3.4-5.0); Alkaline Phosphatase 111 U/L (45-117); Aspartate Amino Transferase 33 U/L (0-37); Bilirubin,Total < 0.39 MG/DL (0.2-1.0); Blood Urea Nitrogen 13 MG/DL (7-18); Calcium 8.8 MG/DL (8.5-10.1); Estimated Glom Filtration Rate 62 ML/MIN; Glucose 330 MG/DL (74-106); Osmolality,Calculated 287.7 MOS/KG (273-304); Total Protein 6.2 G/DL (6.4-8.3)
[2020-08-19 14:53] LABS: INR 1.1; PT Patient Result 11.6 SECS (9.8-11.9)
[2020-08-19 15:22] LABS: Bilirubin,Urine Negative (Negative); Blood, Urine Negative (Negative); Glucose,Urine (UA) >=500 mg/dL (Negative); Ketones,Urine Negative (Negative); Nitrite,Urine Negative (Negative); Protein,Urine Negative; RBC,Urine 2 /HPF (0-4); Squamous Epithelial Cell,Urine Occasional /HPF (0-10); Urine Appearance CLEAR (Clear); Urine Color Straw (Yellow); Urine Specific Gravity 1.006 (1.001-1.035); Urine Urobilinogen < 2.0 EU/DL (0.2-1.0)
[2020-08-19 15:41] LABS: Barbiturates Screen,Urine Negative (Negative); Benzodiazepines Screen,Urine Negative (Negative); Cannabinoid Screen,Urine Negative (Negative); Opiate Screen,Urine Negative (Negative); Phencyclidine Screen,Urine Negative (Negative)
[2020-08-19] MEDS ORDERED: MAGNESIUM SULF RIDER 2 GM in PREMIX 1 EACH IV STA (16:51)
[2020-08-19] MEDS ORDERED: INSULIN REGULAR 100 UNIT/ML SUBCUT STA (16:52)
[2020-08-19] MEDS ORDERED: DOCUSATE SODIUM 100 MG CAPSULE PO PRN (18:40)
[2020-08-19] MEDS ORDERED: DEXTROSE 50% 25 GM/50 ML VIAL IV PRN (18:40)
[2020-08-19] MEDS ORDERED: ONDANSETRON 4 MG/2 ML VIAL IV PRN (18:40)
[2020-08-19] MEDS ORDERED: GLUCAGON 1 MG VIAL IM PRN (18:40)
[2020-08-19] MEDS ORDERED: FLUoxetine 20 MG CAPSULE PO SCH (19:00)
[2020-08-19] MEDS ORDERED: QUEtiapine 100 MG TABLET PO SCH (21:00)
[2020-08-19] MEDS ORDERED: ENOXAPARIN 40 MG/0.4 ML SYRINGE SUBCUT SCH (21:00)
[2020-08-19] MEDS ORDERED: INSULIN GLARGINE 100 UNIT/ML SUBCUT SCH (21:00)
[2020-08-19] MEDS ORDERED: DIVALPROEX ER 500 MG TABLET PO SCH (21:00)
[2020-08-19] MEDS: levETIRAcetam 500 MG TABLET PO SCH (21:15)
[2020-08-19] MEDS: INSULIN REGULAR 100 UNIT/ML SUBCUT SCH (21:15)
[2020-08-19] MEDS: TAMSULOSIN 0.4 MG CAPSULE PO SCH (21:17)
[2020-08-19] MEDS: GABAPENTIN 300 MG CAPSULE PO SCH (21:17)
[2020-08-19] MEDS: SODIUM CHLORIDE 0.45% 1,000 ML IV SCH (21:22)
[2020-08-20 05:53] LABS: Basophils % 0.4 % (0.0-0.8); Eosinophils # 0.2 10*3/uL (0.0-0.87); Eosinophils % 4.5 % (0.00-10.9); Hematocrit 36.4 VOL% (42.0-52.0); Hemoglobin 12.3 GM/DL (14.0-18.0); Immature Granulocytes % 0.9 %; Immature Granulocytes Absolute 0.04 #; Lymphocytes # 1.5 10*3/uL (1.4-4.0); Lymphocytes % 33.5 % (21.2-54.2); Mean Corpuscular HGB Conc 33.8 GM/DL (32-36); Mean Corpuscular Volume 88.3 FL (87-102); Mean Platelet Volume 10.8 FL (9.6-12.0); Monocytes % 12.1 % (1.7-12.7); Neutrophils % 48.6 % (38.7-73.9); Platelet Count 238 T/CUMM (130-400); Red Blood Count 4.12 MC/CUMM (3.8-5.5); Red Cell Distribution Width 14.5 % (9.3-17.3); White Blood Count 4.5 T/CUMM (4-12)
[2020-08-20 06:19] LABS: Calcium 8.8 MG/DL (8.5-10.1); Osmolality,Calculated 281.1 MOS/KG (273-304)
[2020-08-20] MEDS: INSULIN REGULAR 100 UNIT/ML SUBCUT SCH ×2 (07:42→11:56)
[2020-08-20] MEDS: TAMSULOSIN 0.4 MG CAPSULE PO SCH (08:16)
[2020-08-20] MEDS: GABAPENTIN 300 MG CAPSULE PO SCH (08:16)
[2020-08-20] MEDS: levETIRAcetam 500 MG TABLET PO SCH (08:16)
[2020-08-20] MEDS ORDERED: METOPROLOL SUCCINATE XL 50 MG TABLET PO SCH (09:00)
[2020-08-20] MEDS ORDERED: ATORVASTATIN 40 MG TABLET PO SCH (09:00)
[2020-08-20] MEDS ORDERED: CLOPIDOGREL 75 MG TABLET PO SCH (09:00)
[2020-08-20] MEDS ORDERED: MAGNESIUM CHLORIDE 64 MG TABLET PO SCH (09:00)
[2020-08-20] MEDS ORDERED: ASPIRIN 325 MG TABLET PO SCH (09:00)
[2020-08-20] MEDS ORDERED: FINASTERIDE 5 MG TABLET PO SCH (09:00)
[2020-08-20] MEDS ORDERED: OMEGA 3 ACID ETHYL ESTERS 1 GM CAPSULE PO SCH (09:00)
[2020-08-20 11:55] VITALS: BP 145/92
[2020-08-20] MEDS: SODIUM CHLORIDE 0.45% 1,000 ML IV SCH (12:05)
== END 2020-08-20 12:35 | disposition home or self-care (01) ==
LOC: EDBD → EDUNIT# → N.ED 13:25 → N.EDINP 13:25 → N.3E 18:22
PROVIDERS: ADMIT Hospitalist; ATTEND Hospitalist

== ENCOUNTER 2020-09-07 16:02 | Inpatient (IN) ==
[2020-09-07] MEDS ORDERED: SODIUM CHLORIDE 0.9% 1,000 ML IV STA (16:31)
[2020-09-07 17:59] LABS: Bilirubin,Urine Negative (Negative); Blood, Urine Moderate mg/dL (Negative); Glucose,Urine (UA) Negative (Negative); Hyaline Casts,Urine 77 /LPF (0-3); Ketones,Urine Negative (Negative); Mucus,Urine Few /LPF (Occasional); Nitrite,Urine Negative (Negative); Protein,Urine 100 MG/DL; RBC,Urine 207 /HPF (0-4); Urine Appearance CLOUDY (Clear); Urine Color Yellow (Yellow); Urine Specific Gravity 1.019 (1.001-1.035); WBC,Urine 99 /HPF (0-6)
[2020-09-07] MEDS ORDERED: cefTRIAXone 1,000 MG in SODIUM CHLORIDE 0.9% 100 ML IV STA (18:05)
[2020-09-07 18:09] LABS: Basophils % 0.3 % (0.0-0.8); Eosinophils # 0.3 10*3/uL (0.0-0.87); Eosinophils % 2.5 % (0.00-10.9); Hematocrit 41.3 VOL% (42.0-52.0); Hemoglobin 13.3 GM/DL (14.0-18.0); Immature Granulocytes % 3.1 %; Immature Granulocytes Absolute 0.31 #; Lymphocytes # 1.3 10*3/uL (1.4-4.0); Mean Corpuscular HGB Conc 32.2 GM/DL (32-36); Mean Corpuscular Volume 90.6 FL (87-102); Mean Platelet Volume 10.6 FL (9.6-12.0); Monocytes % 7.6 % (1.7-12.7); Neutrophils % 73.5 % (38.7-73.9); Platelet Count 435 T/CUMM (130-400); Red Blood Count 4.56 MC/CUMM (3.8-5.5); Red Cell Distribution Width 15.3 % (9.3-17.3); White Blood Count 9.9 T/CUMM (4-12)
[2020-09-07 18:34] LABS: Alanine Aminotransferase 51 U/L (16-61); Albumin 2.4 G/DL (3.4-5.0); Alkaline Phosphatase 88 U/L (45-117); Aspartate Amino Transferase 40 U/L (0-37); Bilirubin,Total < 0.39 MG/DL (0.2-1.0); Blood Urea Nitrogen 44 MG/DL (7-18); Calcium 10.1 MG/DL (8.5-10.1); Estimated Glom Filtration Rate 38 ML/MIN; Glucose 77 MG/DL (74-106); Osmolality,Calculated 282.8 MOS/KG (273-304); Total Protein 8.6 G/DL (6.4-8.3)
[2020-09-07] MEDS ORDERED: DEXTROSE 50% 25 GM/50 ML VIAL IV PRN ×2 (19:08)
[2020-09-07] MEDS ORDERED: GLUCAGON 1 MG VIAL IM PRN ×2 (19:08)
[2020-09-07] MEDS ORDERED: ACETAMINOPHEN 325 MG TABLET PO PRN (19:08)
[2020-09-07] MEDS ORDERED: ONDANSETRON 4 MG/2 ML VIAL IV PRN (19:08)
[2020-09-07] MEDS ORDERED: diphenhydrAMINE CAP 25 MG CAPSULE PO PRN (19:08)
[2020-09-07] MEDS ORDERED: guaiFENesin/DM ER 600-30 MG TABLET PO PRN (19:08)
[2020-09-07] MEDS ORDERED: NICOTINE 21 MG/24 HR PATCH TRANSDERM PRN (19:08)
[2020-09-07] MEDS ORDERED: LEVOFLOXACIN INJ 750 MG in PREMIX 1 EACH IV SCH (21:00)
[2020-09-07] MEDS: SODIUM CHLORIDE 0.9% 1,000 ML IV SCH (23:02)
[2020-09-07] MEDS: INSULIN LISPRO 100 UNIT/ML SUBCUT SCH (23:31)
[2020-09-08] MEDS ORDERED: POLYETHYLENE GLYCOL POWDER 17 GM PACK PO ONE (03:49)
[2020-09-08 04:08] LABS: Basophils % 0.5 % (0.0-0.8); Eosinophils # 0.3 10*3/uL (0.0-0.87); Hematocrit 36.4 VOL% (42.0-52.0); Hemoglobin 11.8 GM/DL (14.0-18.0); Immature Granulocytes % 3.6 %; Lymphocytes # 1.2 10*3/uL (1.4-4.0); Lymphocytes % 14.8 % (21.2-54.2); Mean Corpuscular HGB Conc 32.4 GM/DL (32-36); Mean Corpuscular Volume 89.9 FL (87-102); Mean Platelet Volume 10.6 FL (9.6-12.0); Monocytes % 8.5 % (1.7-12.7); Neutrophils % 69.6 % (38.7-73.9); Platelet Count 346 T/CUMM (130-400); Red Blood Count 4.05 MC/CUMM (3.8-5.5); Red Cell Distribution Width 15.1 % (9.3-17.3); White Blood Count 8.2 T/CUMM (4-12)
[2020-09-08 04:37] LABS: Osmolality,Calculated 285.5 MOS/KG (273-304)
[2020-09-08] MEDS: MAGNESIUM SULF RIDER 2 GM in PREMIX 1 EACH IV PRN (06:39)
[2020-09-08] MEDS ORDERED: MAGNESIUM SULF RIDER 4 GM in PREMIX 1 EACH IV PRN (08:55)
[2020-09-08] MEDS ORDERED: MAGNESIUM SULF RIDER 2 GM in PREMIX 1 EACH IV PRN (08:55)
[2020-09-08] MEDS ORDERED: POLYETHYLENE GLYCOL POWDER 17 GM PACK PO PRN (09:30)
[2020-09-08] MEDS: INSULIN LISPRO 100 UNIT/ML SUBCUT SCH ×4 (09:50→21:02)
[2020-09-08] MEDS: PANTOPRAZOLE 40 MG TABLET PO SCH (09:50)
[2020-09-08] MEDS: BISACODYL 10 MG SUPP RECTAL SCH (15:17)
[2020-09-08] MEDS: FINASTERIDE 5 MG TABLET PO SCH (15:17)
[2020-09-08] MEDS ORDERED: INSULIN GLARGINE 100 UNIT/ML SUBCUT SCH (21:00)
[2020-09-08] MEDS: traZODone 50 MG TABLET PO SCH (21:02)
[2020-09-08] MEDS: levETIRAcetam 500 MG TABLET PO SCH (21:02)
[2020-09-08] MEDS: INSULIN GLARGINE 100 UNIT/ML SUBCUT SCH (21:02)
[2020-09-08] MEDS: TAMSULOSIN 0.4 MG CAPSULE PO SCH (21:02)
[2020-09-08] MEDS: ZALEPLON 5 MG CAPSULE PO PRN (23:31)
[2020-09-09 05:35] LABS: Basophils % 0.4 % (0.0-0.8); Eosinophils # 0.2 10*3/uL (0.0-0.87); Eosinophils % 2.4 % (0.00-10.9); Hematocrit 36.1 VOL% (42.0-52.0); Hemoglobin 11.8 GM/DL (14.0-18.0); Immature Granulocytes % 1.5 %; Immature Granulocytes Absolute 0.13 #; Lymphocytes # 1.1 10*3/uL (1.4-4.0); Lymphocytes % 13.3 % (21.2-54.2); Mean Corpuscular HGB Conc 32.7 GM/DL (32-36); Mean Corpuscular Volume 87.8 FL (87-102); Mean Platelet Volume 10.6 FL (9.6-12.0); Monocytes % 8.2 % (1.7-12.7); Neutrophils % 74.2 % (38.7-73.9); Platelet Count 394 T/CUMM (130-400); Red Blood Count 4.11 MC/CUMM (3.8-5.5); Red Cell Distribution Width 14.9 % (9.3-17.3); White Blood Count 8.5 T/CUMM (4-12)
[2020-09-09 05:57] LABS: Calcium 9.1 MG/DL (8.5-10.1); Osmolality,Calculated 283.5 MOS/KG (273-304)
[2020-09-09] MEDS: SODIUM CHLORIDE 0.9% 1,000 ML IV SCH ×4 (06:30→15:08)
[2020-09-09] MEDS: INSULIN LISPRO 100 UNIT/ML SUBCUT SCH ×4 (08:04→21:16)
[2020-09-09] MEDS: PANTOPRAZOLE 40 MG TABLET PO SCH (08:05)
[2020-09-09] MEDS: TAMSULOSIN 0.4 MG CAPSULE PO SCH ×2 (08:05→21:12)
[2020-09-09] MEDS: levETIRAcetam 500 MG TABLET PO SCH ×2 (08:05→21:13)
[2020-09-09] MEDS: FINASTERIDE 5 MG TABLET PO SCH (08:05)
[2020-09-09] MEDS: METOPROLOL SUCCINATE XL 50 MG TABLET PO SCH (08:05)
[2020-09-09] MEDS: BISACODYL 10 MG SUPP RECTAL SCH (08:06)
[2020-09-09] MEDS: CLOPIDOGREL 75 MG TABLET PO SCH (08:07)
[2020-09-09] MEDS: traZODone 50 MG TABLET PO SCH (21:12)
[2020-09-09] MEDS: ZALEPLON 5 MG CAPSULE PO PRN (21:13)
[2020-09-09] MEDS: INSULIN GLARGINE 100 UNIT/ML SUBCUT SCH (21:29)
[2020-09-10] MEDS: SODIUM CHLORIDE 0.9% 1,000 ML IV SCH ×2 (01:10→16:04)
[2020-09-10 05:35] LABS: Basophils % 0.5 % (0.0-0.8); Eosinophils # 0.3 10*3/uL (0.0-0.87); Eosinophils % 3.4 % (0.00-10.9); Hematocrit 34.3 VOL% (42.0-52.0); Hemoglobin 11.3 GM/DL (14.0-18.0); Immature Granulocytes % 1.4 %; Immature Granulocytes Absolute 0.11 #; Lymphocytes # 1.4 10*3/uL (1.4-4.0); Lymphocytes % 17.3 % (21.2-54.2); Mean Corpuscular HGB Conc 32.9 GM/DL (32-36); Mean Corpuscular Volume 87.7 FL (87-102); Mean Platelet Volume 10.5 FL (9.6-12.0); Neutrophils % 70.4 % (38.7-73.9); Platelet Count 428 T/CUMM (130-400); Red Blood Count 3.91 MC/CUMM (3.8-5.5); Red Cell Distribution Width 14.7 % (9.3-17.3); White Blood Count 7.9 T/CUMM (4-12)
[2020-09-10 06:11] LABS: Osmolality,Calculated 278.5 MOS/KG (273-304)
[2020-09-10] MEDS: METOPROLOL SUCCINATE XL 50 MG TABLET PO SCH (08:31)
[2020-09-10] MEDS: TAMSULOSIN 0.4 MG CAPSULE PO SCH ×2 (08:31→20:18)
[2020-09-10] MEDS: levETIRAcetam 500 MG TABLET PO SCH ×2 (08:31→20:18)
[2020-09-10] MEDS: BISACODYL 10 MG SUPP RECTAL SCH (08:31)
[2020-09-10] MEDS: PANTOPRAZOLE 40 MG TABLET PO SCH (08:31)
[2020-09-10] MEDS: CLOPIDOGREL 75 MG TABLET PO SCH (08:31)
[2020-09-10] MEDS: INSULIN LISPRO 100 UNIT/ML SUBCUT SCH ×4 (08:31→20:17)
[2020-09-10] MEDS: FINASTERIDE 5 MG TABLET PO SCH (08:31)
[2020-09-10] MEDS ORDERED: TUBERCULIN SKIN TEST 0.1 ML SYRINGE INTRADERM ONE (15:00)
[2020-09-10] MEDS: INSULIN GLARGINE 100 UNIT/ML SUBCUT SCH (20:17)
[2020-09-10] MEDS: traZODone 50 MG TABLET PO SCH (20:18)
[2020-09-10] MEDS: ZALEPLON 5 MG CAPSULE PO PRN (23:58)
[2020-09-11] MEDS: SODIUM CHLORIDE 0.9% 1,000 ML IV SCH (02:10)
[2020-09-11] MEDS: INSULIN LISPRO 100 UNIT/ML SUBCUT SCH ×4 (07:05→21:09)
[2020-09-11 07:08] LABS: Basophils % 0.2 % (0.0-0.8); Eosinophils # 0.3 10*3/uL (0.0-0.87); Eosinophils % 3.2 % (0.00-10.9); Hematocrit 36.9 VOL% (42.0-52.0); Hemoglobin 12.2 GM/DL (14.0-18.0); Immature Granulocytes % 0.9 %; Immature Granulocytes Absolute 0.07 #; Lymphocytes # 1.2 10*3/uL (1.4-4.0); Lymphocytes % 14.5 % (21.2-54.2); Mean Corpuscular HGB Conc 33.1 GM/DL (32-36); Mean Corpuscular Volume 87.9 FL (87-102); Mean Platelet Volume 10.5 FL (9.6-12.0); Monocytes % 6.2 % (1.7-12.7); Platelet Count 468 T/CUMM (130-400); Red Cell Distribution Width 14.6 % (9.3-17.3); White Blood Count 8.2 T/CUMM (4-12)
[2020-09-11 07:22] LABS: Calcium 8.9 MG/DL (8.5-10.1); Osmolality,Calculated 282.4 MOS/KG (273-304)
[2020-09-11] MEDS: MAGNESIUM SULF RIDER 2 GM in PREMIX 1 EACH IV PRN (08:53)
[2020-09-11] MEDS: METOPROLOL SUCCINATE XL 50 MG TABLET PO SCH (08:53)
[2020-09-11] MEDS: FINASTERIDE 5 MG TABLET PO SCH (08:53)
[2020-09-11] MEDS: TAMSULOSIN 0.4 MG CAPSULE PO SCH ×2 (08:53→21:11)
[2020-09-11] MEDS: levETIRAcetam 500 MG TABLET PO SCH ×2 (08:53→21:10)
[2020-09-11] MEDS: PANTOPRAZOLE 40 MG TABLET PO SCH (08:53)
[2020-09-11] MEDS: CLOPIDOGREL 75 MG TABLET PO SCH (08:53)
[2020-09-11] MEDS: BISACODYL 10 MG SUPP RECTAL SCH ×2 (08:54→09:33)
[2020-09-11] MEDS: hydrALAZINE 20 MG/1 ML VIAL IV PRN (12:32)
[2020-09-11] MEDS: DOCUSATE SODIUM 100 MG CAPSULE PO SCH ×2 (12:39→21:10)
[2020-09-11] MEDS: POLYETHYLENE GLYCOL POWDER 17 GM PACK PO SCH (12:39)
[2020-09-11] MEDS: INSULIN GLARGINE 100 UNIT/ML SUBCUT SCH (21:09)
[2020-09-11] MEDS: traZODone 50 MG TABLET PO SCH (21:17)
[2020-09-11] MEDS: ZALEPLON 5 MG CAPSULE PO PRN (23:40)
[2020-09-12] MEDS: ZALEPLON 5 MG CAPSULE PO PRN (01:29)
[2020-09-12 05:58] LABS: Basophils % 0.3 % (0.0-0.8); Eosinophils # 0.2 10*3/uL (0.0-0.87); Eosinophils % 3.1 % (0.00-10.9); Hematocrit 36.3 VOL% (42.0-52.0); Hemoglobin 12.3 GM/DL (14.0-18.0); Immature Granulocytes % 0.6 %; Immature Granulocytes Absolute 0.04 #; Lymphocytes % 15.4 % (21.2-54.2); Mean Corpuscular HGB Conc 33.9 GM/DL (32-36); Mean Platelet Volume 10.5 FL (9.6-12.0); Monocytes % 7.2 % (1.7-12.7); Neutrophils % 73.4 % (38.7-73.9); Platelet Count 412 T/CUMM (130-400); Red Blood Count 4.22 MC/CUMM (3.8-5.5); Red Cell Distribution Width 14.4 % (9.3-17.3); White Blood Count 6.5 T/CUMM (4-12)
[2020-09-12 06:25] LABS: Calcium 9.1 MG/DL (8.5-10.1)
[2020-09-12 06:26] LABS: Platelet Estimate Increased
[2020-09-12] MEDS: METOPROLOL SUCCINATE XL 50 MG TABLET PO SCH (08:20)
[2020-09-12] MEDS: DOCUSATE SODIUM 100 MG CAPSULE PO SCH (08:20)
[2020-09-12] MEDS: CLOPIDOGREL 75 MG TABLET PO SCH (08:20)
[2020-09-12] MEDS: FINASTERIDE 5 MG TABLET PO SCH (08:20)
[2020-09-12] MEDS: levETIRAcetam 500 MG TABLET PO SCH (08:20)
[2020-09-12] MEDS: PANTOPRAZOLE 40 MG TABLET PO SCH (08:20)
[2020-09-12] MEDS: INSULIN LISPRO 100 UNIT/ML SUBCUT SCH ×3 (08:20→17:25)
[2020-09-12] MEDS: POLYETHYLENE GLYCOL POWDER 17 GM PACK PO SCH (08:21)
[2020-09-12] MEDS: TAMSULOSIN 0.4 MG CAPSULE PO SCH (08:21)
[2020-09-12] MEDS: MAGNESIUM SULF RIDER 2 GM in PREMIX 1 EACH IV PRN (08:52)
[2020-09-12] MEDS: SODIUM CHLORIDE 0.9% 1,000 ML IV SCH (10:24)
[2020-09-12] MEDS: hydrALAZINE 20 MG/1 ML VIAL IV PRN (12:40)
[2020-09-12 15:46] VITALS: BP 94/54
== END 2020-09-12 18:50 | DRG 684 ==
LOC: EDUNIT# → EDBD → N.ED 16:02 → N.EDINP 16:02 → N.3E 20:18 → SUATTDRO 09-09 11:22 → N.3E 09-11 16:28
PROVIDERS: ADMIT Internal Medicine; ATTEND Internal Medicine

== ENCOUNTER 2020-10-27 22:55 | Inpatient (IN) ==
[2020-10-27] MEDS ORDERED: SODIUM CHLORIDE 0.9% 1,000 ML IV STA (23:07)
[2020-10-27 23:29] LABS: Basophils % 0.3 % (0.0-0.8); Eosinophils # 0.2 10*3/uL (0.0-0.87); Eosinophils % 2.1 % (0.00-10.9); Hematocrit 32.1 VOL% (42.0-52.0); Hemoglobin 10.6 GM/DL (14.0-18.0); Immature Granulocytes % 1.1 %; Immature Granulocytes Absolute 0.09 #; Lymphocytes # 1.3 10*3/uL (1.4-4.0); Lymphocytes % 16.8 % (21.2-54.2); Mean Corpuscular Volume 86.5 FL (87-102); Mean Platelet Volume 9.9 FL (9.6-12.0); Monocytes % 9.6 % (1.7-12.7); Neutrophils % 70.1 % (38.7-73.9); Platelet Count 358 T/CUMM (130-400); Red Blood Count 3.71 MC/CUMM (3.8-5.5); Red Cell Distribution Width 14.3 % (9.3-17.3); White Blood Count 7.9 T/CUMM (4-12)
[2020-10-27 23:40] LABS: PT Patient Result 10.9 SECS (9.8-11.9); Partial Thromboplastin Time 25.7 SECS (23.9-33.8)
[2020-10-27 23:53] LABS: Alanine Aminotransferase 14 U/L (16-61); Albumin 2.3 G/DL (3.4-5.0); Alkaline Phosphatase 60 U/L (45-117); Aspartate Amino Transferase 12 U/L (0-37); Blood Urea Nitrogen 51 MG/DL (7-18); Calcium 9.4 MG/DL (8.5-10.1); Estimated Glom Filtration Rate 35 ML/MIN; Glucose 95 MG/DL (74-106); Osmolality,Calculated 290.5 MOS/KG (273-304); Total Protein 7.7 G/DL (6.4-8.3)
[2020-10-28] MEDS ORDERED: SODIUM CHLORIDE 0.9% 1,000 ML IV STA (00:02)
[2020-10-28 00:23] LABS: Bilirubin,Urine Negative (Negative); Blood, Urine Negative (Negative); Glucose,Urine (UA) Negative (Negative); Hyaline Casts,Urine 22 /LPF (0-3); Ketones,Urine Negative (Negative); Mucus,Urine Occasional /LPF (Occasional); Nitrite,Urine Negative (Negative); Protein,Urine Negative; RBC,Urine <1 /HPF (0-4); Urine Appearance CLEAR (Clear); Urine Color Yellow (Yellow); Urine Specific Gravity 1.016 (1.001-1.035); WBC,Urine 1 /HPF (0-6)
[2020-10-28] MEDS ORDERED: cefTRIAXone 1,000 MG in SODIUM CHLORIDE 0.9% 100 ML IV STA (00:52)
[2020-10-28] MEDS ORDERED: cefTRIAXone 1,000 MG VIAL ONE (01:08)
[2020-10-28 01:25] LABS: Troponin I < 0.015 NG/ML (0.00-0.045)
[2020-10-28] MEDS ORDERED: ALBUTEROL/IPRATROPIUM 3 ML NEB RESP TX PRN (01:50)
[2020-10-28] MEDS ORDERED: ONDANSETRON 4 MG/2 ML VIAL IV PRN (01:50)
[2020-10-28] MEDS ORDERED: ALBUTEROL 2.5 MG/3 ML NEB RESP TX PRN (01:50)
[2020-10-28] MEDS ORDERED: DOCUSATE SODIUM 100 MG CAPSULE PO PRN (01:50)
[2020-10-28] MEDS ORDERED: ACETAMINOPHEN 325 MG TABLET PO PRN (01:50)
[2020-10-28] MEDS ORDERED: MAGNESIUM SULF RIDER 4 GM in PREMIX 1 EACH IV PRN (02:00)
[2020-10-28] MEDS ORDERED: POTASSIUM CHLORIDE RIDER 10 MEQ in PREMIX 1 EACH IV PRN (02:00)
[2020-10-28] MEDS ORDERED: MEROPENEM 500 MG in SODIUM CHLORIDE 0.9% 100 ML IV SCH (02:30)
[2020-10-28] MEDS ORDERED: PANTOPRAZOLE 40 MG VIAL IV SCH ×2 (02:30→09:00)
[2020-10-28 02:40] LABS: Risk Ratio 4.48; Thyroid Stimulating Hormone 0.883 uIU/ml (0.358-3.74); VLDL CHOLESTEROL 39.6 MG/DL
[2020-10-28 02:41] LABS: ABG Base Excess -2.6 MMOL/L (-2.5-2.5); ABG HCO3 22.2 MMOL/L (20-26); ABG Oxygen Saturation 94.9 % (95-100); ABG PCO2 42.5 MM HG (35-48); ABG PH 7.342 (7.35-7.45); ABG PO2 85.1 MM HG (80-95); ABG TCO2 21.2 MMOL/L (23-27)
[2020-10-28] MEDS: SODIUM CHLORIDE 0.9% 1,000 ML IV SCH ×3 (02:49→20:17)
[2020-10-28] MEDS ORDERED: DEXTROSE 50% 25 GM/50 ML VIAL IV PRN (02:59)
[2020-10-28] MEDS ORDERED: GLUCAGON 1 MG VIAL IM PRN (02:59)
[2020-10-28] MEDS ORDERED: VANCOMYCIN INJ 1,250 MG in SODIUM CHLORIDE 0.9% 250 ML IV SCH (04:30)
[2020-10-28] MEDS: INSULIN REGULAR 100 UNIT/ML SUBCUT SCH ×3 (07:07→18:13)
[2020-10-28 07:36] LABS: INR 1.3; PT Patient Result 13.4 SECS (9.8-11.9)
[2020-10-28] MEDS ORDERED: METOPROLOL SUCCINATE XL 50 MG TABLET PO SCH (08:00)
[2020-10-28] MEDS: GABAPENTIN 300 MG CAPSULE PO SCH ×3 (08:58→20:12)
[2020-10-28] MEDS: TAMSULOSIN 0.4 MG CAPSULE PO SCH ×2 (08:58→20:12)
[2020-10-28] MEDS: FINASTERIDE 5 MG TABLET PO SCH (08:58)
[2020-10-28] MEDS: ATORVASTATIN 40 MG TABLET PO SCH (08:58)
[2020-10-28] MEDS: CLOPIDOGREL 75 MG TABLET PO SCH (08:58)
[2020-10-28] MEDS: FLUoxetine 20 MG CAPSULE PO SCH (08:58)
[2020-10-28] MEDS ORDERED: NON-FORMULARY MEDICATION (Omeprazole 20 mg Capsule,Delayed Release(Dr/Ec)) PO SCH (09:00)
[2020-10-28] MEDS ORDERED: levETIRAcetam 500 MG TABLET PO SCH (09:00)
[2020-10-28] MEDS ORDERED: PANTOPRAZOLE 40 MG TABLET PO SCH (09:00)
[2020-10-28] MEDS ORDERED: LORazepam 2 MG/1 ML VIAL IV ONE (09:39)
[2020-10-28] MEDS: levETIRAcetam 500 MG TABLET PO SCH ×2 (10:06→20:12)
[2020-10-28] MEDS: HALOPERIDOL 5 MG/ML AMP IV PRN (11:44)
[2020-10-28] MEDS: QUEtiapine 25 MG TABLET PO SCH ×2 (14:27→20:12)
[2020-10-28] MEDS: DIVALPROEX 500 MG TABLET PO SCH (20:11)
[2020-10-28] MEDS: traZODone 50 MG TABLET PO SCH (20:12)
[2020-10-29] MEDS: INSULIN REGULAR 100 UNIT/ML SUBCUT SCH ×4 (00:40→21:16)
[2020-10-29] MEDS: SODIUM CHLORIDE 0.9% 1,000 ML IV SCH ×2 (04:49→22:57)
[2020-10-29 07:07] LABS: Basophils % 0.1 % (0.0-0.8); Eosinophils # 0.2 10*3/uL (0.0-0.87); Eosinophils % 3.4 % (0.00-10.9); Immature Granulocytes Absolute 0.07 #; Lymphocytes # 1.2 10*3/uL (1.4-4.0); Lymphocytes % 17.2 % (21.2-54.2); Mean Corpuscular HGB Conc 34.4 GM/DL (32-36); Mean Corpuscular Volume 85.3 FL (87-102); Mean Platelet Volume 9.6 FL (9.6-12.0); Monocytes % 10.3 % (1.7-12.7); Platelet Count 361 T/CUMM (130-400); Red Blood Count 3.75 MC/CUMM (3.8-5.5); Red Cell Distribution Width 13.9 % (9.3-17.3); White Blood Count 6.8 T/CUMM (4-12)
[2020-10-29 07:32] LABS: Alanine Aminotransferase 12 U/L (16-61); Albumin 2.2 G/DL (3.4-5.0); Alkaline Phosphatase 54 U/L (45-117); Aspartate Amino Transferase 17 U/L (0-37); Bilirubin,Direct < 0.100 MG/DL (0.0-0.20); Bilirubin,Indirect 0.4 MG/DL (0.0-1.0); Blood Urea Nitrogen 19 MG/DL (7-18); Calcium 8.7 MG/DL (8.5-10.1); Estimated Glom Filtration Rate 130 ML/MIN; Glucose 90 MG/DL (74-106); Osmolality,Calculated 280.4 MOS/KG (273-304); Total Protein 7.4 G/DL (6.4-8.3)
[2020-10-29 07:51] LABS: Albumin 2.2 G/DL (3.4-5.0); Bilirubin,Total 0.4 MG/DL (0.2-1.0); Calcium 8.7 MG/DL (8.5-10.1); Osmolality,Calculated 280.4 MOS/KG (273-304); Total Protein 7.1 G/DL (6.4-8.3)
[2020-10-29] MEDS: levETIRAcetam 500 MG TABLET PO SCH ×2 (08:31→20:19)
[2020-10-29] MEDS: GABAPENTIN 300 MG CAPSULE PO SCH ×3 (08:32→20:19)
[2020-10-29] MEDS: QUEtiapine 25 MG TABLET PO SCH ×2 (08:32→20:19)
[2020-10-29] MEDS: FINASTERIDE 5 MG TABLET PO SCH (08:32)
[2020-10-29] MEDS: TAMSULOSIN 0.4 MG CAPSULE PO SCH ×2 (08:32→20:19)
[2020-10-29] MEDS: CLOPIDOGREL 75 MG TABLET PO SCH (08:32)
[2020-10-29] MEDS: FLUoxetine 20 MG CAPSULE PO SCH (08:32)
[2020-10-29] MEDS: ATORVASTATIN 40 MG TABLET PO SCH (08:32)
[2020-10-29 09:01] LABS: Total Protein (Chem) 7.5 G/DL (6.4-8.3)
[2020-10-29 09:07] LABS: Albumin (SPE) 3.5 G/DL (3.2-5.3); Albumin (SPE) Rel % 46.6 %; Alpha 1 (SPE) 0.3 G/DL (0.1-0.4); Alpha 1 (SPE) Rel % 3.6 %; Alpha 2 (SPE) 1.1 G/DL (0.4-1.0); Alpha 2 (SPE) Rel % 14.1 %; Beta (SPE) 1.4 G/DL (0.5-1.1); Beta (SPE) Rel % 19.2 %; Gamma (SPE) 1.2 G/DL (0.7-1.7); Gamma (SPE) Rel % 16.5 %
[2020-10-29 09:26] LABS: Albumin (UPER) 338.4 MG/DL; Albumin (UPER) Rel% 42.1 %; Alpha 1 (UPER) 28.9 MG/DL; Alpha 1 (UPER) Rel% 3.6 %; Alpha 2 (UPER) 93.3 MG/DL; Alpha 2 (UPER) Rel % 11.6 %; Beta (UPER) 203.4 MG/DL; Beta (UPER) Rel % 25.3 %; Gamma (UPER) 139.9 MG/DL; Gamma (UPER) Rel % 17.4 %
[2020-10-29 10:36] LABS: Immunoglobulin A 580 MG/DL (70-400); Immunoglobulin G 1490 MG/DL (700-1600); Immunoglobulin M 34 MG/DL (40-230)
[2020-10-29] MEDS ORDERED: METOPROLOL SUCCINATE XL 50 MG TABLET PO SCH (10:53)
[2020-10-29] MEDS: lisinopriL 20 MG TABLET PO SCH (11:12)
[2020-10-29] MEDS ORDERED: GLUCAGON 1 MG VIAL IM PRN (15:17)
[2020-10-29] MEDS ORDERED: DEXTROSE 50% 25 GM/50 ML VIAL IV PRN (15:17)
[2020-10-29] MEDS: HALOPERIDOL 5 MG/ML AMP IV PRN (17:33)
[2020-10-29] MEDS: traZODone 50 MG TABLET PO SCH (20:19)
[2020-10-29] MEDS: DIVALPROEX 500 MG TABLET PO SCH (20:19)
[2020-10-29] MEDS ORDERED: LORazepam 2 MG/1 ML VIAL IV ONE (21:16)
[2020-10-30] MEDS: INSULIN REGULAR 100 UNIT/ML SUBCUT SCH ×3 (00:02→19:48)
[2020-10-30 06:12] LABS: Basophils % 0.2 % (0.0-0.8); Eosinophils # 0.2 10*3/uL (0.0-0.87); Eosinophils % 3.6 % (0.00-10.9); Hematocrit 30.4 VOL% (42.0-52.0); Hemoglobin 10.4 GM/DL (14.0-18.0); Immature Granulocytes % 0.8 %; Immature Granulocytes Absolute 0.05 #; Lymphocytes # 1.3 10*3/uL (1.4-4.0); Lymphocytes % 20.9 % (21.2-54.2); Mean Corpuscular HGB Conc 34.2 GM/DL (32-36); Mean Corpuscular Volume 84.9 FL (87-102); Mean Platelet Volume 9.8 FL (9.6-12.0); Monocytes % 10.4 % (1.7-12.7); Neutrophils % 64.1 % (38.7-73.9); Platelet Count 369 T/CUMM (130-400); Red Blood Count 3.58 MC/CUMM (3.8-5.5); Red Cell Distribution Width 13.8 % (9.3-17.3); White Blood Count 6.1 T/CUMM (4-12)
[2020-10-30 06:36] LABS: Albumin 2.1 G/DL (3.4-5.0); Bilirubin,Total 0.8 MG/DL (0.2-1.0); Calcium 8.6 MG/DL (8.5-10.1); Osmolality,Calculated 277.5 MOS/KG (273-304); Total Protein 7.1 G/DL (6.4-8.3)
[2020-10-30] MEDS: HALOPERIDOL 5 MG/ML AMP IV PRN (07:16)
[2020-10-30] MEDS ORDERED: LORazepam 2 MG/1 ML VIAL IV ONE (07:48)
[2020-10-30] MEDS ORDERED: LORazepam 2 MG/1 ML VIAL IV PRN (08:37)
[2020-10-30] MEDS: FINASTERIDE 5 MG TABLET PO SCH (10:40)
[2020-10-30] MEDS: levETIRAcetam 500 MG TABLET PO SCH ×2 (10:40→20:09)
[2020-10-30] MEDS: GABAPENTIN 300 MG CAPSULE PO SCH ×3 (10:40→20:08)
[2020-10-30] MEDS: FLUoxetine 20 MG CAPSULE PO SCH (10:40)
[2020-10-30] MEDS: ATORVASTATIN 40 MG TABLET PO SCH (10:40)
[2020-10-30] MEDS: CLOPIDOGREL 75 MG TABLET PO SCH (10:40)
[2020-10-30] MEDS: MAGNESIUM SULF RIDER 2 GM in PREMIX 1 EACH IV PRN (10:40)
[2020-10-30] MEDS: lisinopriL 20 MG TABLET PO SCH (10:41)
[2020-10-30] MEDS: QUEtiapine 25 MG TABLET PO SCH ×2 (10:41→20:09)
[2020-10-30] MEDS: TAMSULOSIN 0.4 MG CAPSULE PO SCH ×2 (10:41→20:08)
[2020-10-30] MEDS: METOPROLOL SUCCINATE XL 100 MG TABLET PO SCH (10:41)
[2020-10-30] MEDS: SODIUM CHLORIDE 0.9% 1,000 ML IV SCH (20:04)
[2020-10-30] MEDS: traZODone 50 MG TABLET PO SCH (20:08)
[2020-10-30] MEDS: DIVALPROEX 500 MG TABLET PO SCH (20:08)
[2020-10-31] MEDS: INSULIN REGULAR 100 UNIT/ML SUBCUT SCH ×3 (00:56→13:44)
[2020-10-31 06:28] LABS: Calcium 8.7 MG/DL (8.5-10.1); Osmolality,Calculated 272.7 MOS/KG (273-304)
[2020-10-31] MEDS: TAMSULOSIN 0.4 MG CAPSULE PO SCH (09:08)
[2020-10-31] MEDS: GABAPENTIN 300 MG CAPSULE PO SCH ×2 (09:08→13:44)
[2020-10-31] MEDS: lisinopriL 20 MG TABLET PO SCH (09:08)
[2020-10-31] MEDS: METOPROLOL SUCCINATE XL 100 MG TABLET PO SCH (09:08)
[2020-10-31] MEDS: FLUoxetine 20 MG CAPSULE PO SCH (09:08)
[2020-10-31] MEDS: FINASTERIDE 5 MG TABLET PO SCH (09:08)
[2020-10-31] MEDS: ATORVASTATIN 40 MG TABLET PO SCH (09:08)
[2020-10-31] MEDS: QUEtiapine 25 MG TABLET PO SCH (09:08)
[2020-10-31] MEDS: levETIRAcetam 500 MG TABLET PO SCH (09:08)
[2020-10-31] MEDS: CLOPIDOGREL 75 MG TABLET PO SCH (09:08)
[2020-10-31] MEDS: MAGNESIUM SULF RIDER 2 GM in PREMIX 1 EACH IV PRN (09:10)
[2020-10-31 10:04] LABS: Immuno Free Light Chain Kappa 9.49 MG/DL (0.33-1.94); Immuno Free Light Chain Lambda 4.06 MG/DL (0.57-2.63); Immuno Free Light Chain Ratio 2.34 MG/DL (0.26-1.65)
[2020-10-31 13:47] VITALS: BP 149/93
== END 2020-10-31 15:19 | disposition home health service (06) | DRG 682 ==
LOC: EDUNIT# → EDBD → N.ED 22:55 → SUATTDRO 10-28 01:48 → N.EDINP 10-28 01:48 → N.CC 10-28 02:35 → N.4E 10-28 18:30
PROVIDERS: ADMIT Internal Medicine; ATTEND Internal Medicine

== ENCOUNTER 2020-11-28 20:36 | Observation (INO) ==
[2020-11-28] MEDS ORDERED: ONDANSETRON 4 MG/2 ML VIAL IV STA (21:04)
[2020-11-28] MEDS ORDERED: ASPIRIN 325 MG TABLET PO STA (21:04)
[2020-11-28] MEDS ORDERED: MORPHINE 4 MG/1 ML VIAL IV STA (21:04)
[2020-11-28] MEDS ORDERED: NITROGLYCERIN 2% OINT 1 INCH/GM PACK TOP STA (21:04)
[2020-11-28 21:06] LABS: Basophils % 0.3 % (0.0-0.8); Eosinophils # 0.1 10*3/uL (0.0-0.87); Eosinophils % 1.5 % (0.00-10.9); Hematocrit 37.9 VOL% (42.0-52.0); Hemoglobin 12.3 GM/DL (14.0-18.0); Immature Granulocytes % 0.5 %; Immature Granulocytes Absolute 0.04 #; Lymphocytes # 1.4 10*3/uL (1.4-4.0); Mean Corpuscular HGB Conc 32.5 GM/DL (32-36); Mean Corpuscular Volume 90.5 FL (87-102); Mean Platelet Volume 9.5 FL (9.6-12.0); Monocytes % 8.8 % (1.7-12.7); Neutrophils % 70.9 % (38.7-73.9); Platelet Count 282 T/CUMM (130-400); Red Blood Count 4.19 MC/CUMM (3.8-5.5); Red Cell Distribution Width 16.4 % (9.3-17.3); White Blood Count 7.5 T/CUMM (4-12)
[2020-11-28 21:28] LABS: PT Patient Result 10.9 SECS (9.8-11.9)
[2020-11-28 21:28] LABS: Alanine Aminotransferase 21 U/L (16-61); Albumin 2.7 G/DL (3.4-5.0); Alkaline Phosphatase 111 U/L (45-117); Aspartate Amino Transferase 38 U/L (0-37); Bilirubin,Total < 0.39 MG/DL (0.2-1.0); Blood Urea Nitrogen 11 MG/DL (7-18); Calcium 8.6 MG/DL (8.5-10.1); Carbon Dioxide 26 MMOL/L (21-32); Estimated Glom Filtration Rate 105 ML/MIN; Glucose 231 MG/DL (74-106); Osmolality,Calculated 284.4 MOS/KG (273-304); Potassium 5.1 MMOL/L (3.5-5.1); Sodium 140 MMOL/L (136-145); Total Protein 7.3 G/DL (6.4-8.3)
[2020-11-28] MEDS ORDERED: MAGNESIUM SULF RIDER 2 GM in PREMIX 1 EACH IV STA (22:21)
[2020-11-28] MEDS ORDERED: NITROGLYCERIN SL 0.4 MG TABLET SL PRN (22:36)
[2020-11-28] MEDS ORDERED: CALCIUM CARBONATE CHEW 500 MG TABLET PO PRN (22:37)
[2020-11-28] MEDS ORDERED: DEXTROSE 50% 25 GM/50 ML VIAL IV PRN ×2 (22:37)
[2020-11-28] MEDS ORDERED: ALUMINUM/MAGNES/SIMETH MAX STR 30 ML UDCUP PO PRN (22:37)
[2020-11-28] MEDS ORDERED: ONDANSETRON 4 MG/2 ML VIAL IV PRN (22:37)
[2020-11-28] MEDS ORDERED: GLUCAGON 1 MG VIAL IM PRN ×2 (22:37)
[2020-11-28] MEDS ORDERED: BISACODYL 5 MG TABLET PO PRN (22:37)
[2020-11-28] MEDS ORDERED: PROMETHAZINE 25 MG/1 ML VIAL IM PRN (22:37)
[2020-11-28] MEDS ORDERED: ACETAMINOPHEN 325 MG TABLET PO PRN (22:37)
[2020-11-28] MEDS ORDERED: SIMETHICONE CHEW 125 MG TABLET PO PRN (22:37)
[2020-11-28] MEDS ORDERED: MORPHINE 4 MG/1 ML VIAL IV PRN (22:37)
[2020-11-29 05:13] LABS: Basophils % 0.3 % (0.0-0.8); Eosinophils # 0.1 10*3/uL (0.0-0.87); Eosinophils % 1.7 % (0.00-10.9); Hematocrit 35.5 VOL% (42.0-52.0); Hemoglobin 11.8 GM/DL (14.0-18.0); Immature Granulocytes % 0.5 %; Immature Granulocytes Absolute 0.03 #; Lymphocytes # 1.7 10*3/uL (1.4-4.0); Lymphocytes % 28.5 % (21.2-54.2); Mean Corpuscular HGB Conc 33.2 GM/DL (32-36); Mean Corpuscular Volume 88.8 FL (87-102); Monocytes % 11.9 % (1.7-12.7); Neutrophils % 57.1 % (38.7-73.9); Platelet Count 279 T/CUMM (130-400)
[2020-11-29 05:28] LABS: Osmolality,Calculated 280.3 MOS/KG (273-304); Potassium 3.7 MMOL/L (3.5-5.1)
[2020-11-29] MEDS ORDERED: LEVOFLOXACIN INJ 750 MG in PREMIX 1 EACH IV SCH (06:30)
[2020-11-29] MEDS ORDERED: INSULIN LISPRO 100 UNIT/ML SUBCUT SCH (07:30)
[2020-11-29] MEDS ORDERED: levETIRAcetam 500 MG TABLET PO SCH (08:00)
[2020-11-29] MEDS ORDERED: TAMSULOSIN 0.4 MG CAPSULE PO SCH (08:00)
[2020-11-29] MEDS ORDERED: FLUoxetine 20 MG CAPSULE PO SCH (08:00)
[2020-11-29] MEDS ORDERED: GABAPENTIN 300 MG CAPSULE PO SCH (08:00)
[2020-11-29] MEDS ORDERED: CLOPIDOGREL 75 MG TABLET PO SCH (08:00)
[2020-11-29] MEDS ORDERED: lisinopriL 20 MG TABLET PO SCH (09:00)
[2020-11-29] MEDS ORDERED: METOPROLOL SUCCINATE XL 100 MG TABLET PO SCH (09:00)
[2020-11-29] MEDS ORDERED: PANTOPRAZOLE 40 MG TABLET PO SCH (09:00)
[2020-11-29] MEDS ORDERED: FUROSEMIDE 20 MG/2 ML VIAL IV ONE (11:10)
[2020-11-29 12:26] VITALS: BP 163/89
[2020-11-29] MEDS ORDERED: DIVALPROEX 500 MG TABLET PO SCH (20:00)
[2020-11-29] MEDS ORDERED: traZODone 50 MG TABLET PO SCH (20:00)
[2020-11-29] MEDS ORDERED: DOXYCYCLINE HYCLATE 100 MG CAPSULE PO SCH (21:00)
[2020-11-29] MEDS ORDERED: ATORVASTATIN 40 MG TABLET PO SCH (21:00)
== END 2020-11-29 11:50 | disposition home or self-care (01) ==
LOC: EDUNIT# → EDBD → N.ED 20:36 → N.EDINP 20:36 → N.TELEN 23:58
PROVIDERS: ADMIT Internal Medicine; ATTEND Internal Medicine

== ENCOUNTER 2021-01-07 21:44 | Inpatient (IN) ==
[2021-01-07] MEDS ORDERED: SODIUM CHLORIDE 0.9% 500 ML IV STA (21:54)
[2021-01-07 22:43] LABS: Basophils % 0.2 % (0.0-0.8); Eosinophils # 0.2 10*3/uL (0.0-0.87); Hematocrit 35.3 VOL% (42.0-52.0); Hemoglobin 11.2 GM/DL (14.0-18.0); Immature Granulocytes % 1.2 %; Immature Granulocytes Absolute 0.08 #; Lymphocytes # 1.5 10*3/uL (1.4-4.0); Lymphocytes % 21.9 % (21.2-54.2); Mean Corpuscular HGB Conc 31.7 GM/DL (32-36); Mean Corpuscular Volume 90.7 FL (87-102); Mean Platelet Volume 10.3 FL (9.6-12.0); Monocytes % 9.5 % (1.7-12.7); Neutrophils % 64.2 % (38.7-73.9); Platelet Count 309 T/CUMM (130-400); Red Blood Count 3.89 MC/CUMM (3.8-5.5); Red Cell Distribution Width 15.1 % (9.3-17.3); White Blood Count 6.7 T/CUMM (4-12)
[2021-01-07 22:58] LABS: Bilirubin,Urine Negative (Negative); Blood, Urine Small mg/dL (Negative); Glucose,Urine (UA) Negative (Negative); Hyaline Casts,Urine 98 /LPF (0-3); Ketones,Urine Negative (Negative); Mucus,Urine Moderate /LPF (Occasional); Nitrite,Urine Negative (Negative); Protein,Urine 30 MG/DL; RBC,Urine 27 /HPF (0-4); Urine Appearance CLOUDY (Clear); Urine Color Amber (Yellow); Urine Specific Gravity 1.019 (1.001-1.035); Urine Urobilinogen < 2.0 EU/DL (0.2-1.0); WBC,Urine 799 /HPF (0-6)
[2021-01-07 22:59] LABS: PT Patient Result 10.7 SECS (9.8-11.9)
[2021-01-07 23:06] LABS: Alanine Aminotransferase 24 U/L (16-61); Albumin 2.6 G/DL (3.4-5.0); Alkaline Phosphatase 100 U/L (45-117); Aspartate Amino Transferase 17 U/L (0-37); Bilirubin,Total < 0.39 MG/DL (0.2-1.0); Blood Urea Nitrogen 21 MG/DL (7-18); Calcium 9.3 MG/DL (8.5-10.1); Carbon Dioxide 29 MMOL/L (21-32); Estimated Glom Filtration Rate 66 ML/MIN; Glucose 116 MG/DL (74-106); Osmolality,Calculated 280.5 MOS/KG (273-304); Potassium 3.8 MMOL/L (3.5-5.1); Sodium 139 MMOL/L (136-145); Total Protein 7.5 G/DL (6.4-8.3)
[2021-01-07] MEDS ORDERED: VANCOMYCIN INJ 1,000 MG in SODIUM CHLORIDE 0.9% 250 ML IV STA (23:09)
[2021-01-07] MEDS ORDERED: SODIUM CHLORIDE 0.9% 1,500 ML IV STA (23:09)
[2021-01-07] MEDS ORDERED: MEROPENEM 1,000 MG in SODIUM CHLORIDE 0.9% 100 ML IV ONE (23:09)
[2021-01-07 23:20] LABS: Troponin I < 0.015 NG/ML (0.00-0.045)
[2021-01-08] MEDS ORDERED: MEROPENEM 500 MG VIAL ONE (00:05)
[2021-01-08] MEDS ORDERED: ACETAMINOPHEN 325 MG TABLET PO PRN (00:07)
[2021-01-08] MEDS ORDERED: DEXTROSE 50% 25 GM/50 ML VIAL IV PRN (00:07)
[2021-01-08] MEDS ORDERED: ONDANSETRON 4 MG/2 ML VIAL IV PRN (00:07)
[2021-01-08] MEDS ORDERED: GLUCAGON 1 MG VIAL IM PRN (00:07)
[2021-01-08] MEDS: SODIUM CHLORIDE 0.9% 1,000 ML IV SCH ×3 (02:20→16:53)
[2021-01-08 05:53] LABS: Basophils % 0.1 % (0.0-0.8); Eosinophils # 0.1 10*3/uL (0.0-0.87); Eosinophils % 1.3 % (0.00-10.9); Hematocrit 34.6 VOL% (42.0-52.0); Immature Granulocytes % 0.7 %; Immature Granulocytes Absolute 0.05 #; Lymphocytes # 1.1 10*3/uL (1.4-4.0); Lymphocytes % 15.2 % (21.2-54.2); Mean Corpuscular HGB Conc 31.8 GM/DL (32-36); Mean Corpuscular Volume 91.1 FL (87-102); Mean Platelet Volume 10.4 FL (9.6-12.0); Neutrophils % 74.7 % (38.7-73.9); Platelet Count 274 T/CUMM (130-400); Red Cell Distribution Width 15.2 % (9.3-17.3); White Blood Count 7.2 T/CUMM (4-12)
[2021-01-08] MEDS ORDERED: MEROPENEM 500 MG in SODIUM CHLORIDE 0.9% 100 ML IV SCH (06:00)
[2021-01-08 06:26] LABS: Albumin 2.4 G/DL (3.4-5.0); Calcium 8.4 MG/DL (8.5-10.1); Osmolality,Calculated 281.4 MOS/KG (273-304); Potassium 4.2 MMOL/L (3.5-5.1)
[2021-01-08] MEDS: FINASTERIDE 5 MG TABLET PO SCH (08:40)
[2021-01-08] MEDS: METOPROLOL SUCCINATE XL 100 MG TABLET PO SCH (08:40)
[2021-01-08] MEDS: levETIRAcetam 500 MG TABLET PO SCH ×2 (08:40→21:02)
[2021-01-08] MEDS: CLOPIDOGREL 75 MG TABLET PO SCH (08:40)
[2021-01-08] MEDS: ENOXAPARIN 40 MG/0.4 ML SYRINGE SUBCUT SCH (08:41)
[2021-01-08] MEDS: TAMSULOSIN 0.4 MG CAPSULE PO SCH ×2 (08:41→21:03)
[2021-01-08] MEDS: PANTOPRAZOLE 40 MG TABLET PO SCH (08:41)
[2021-01-08] MEDS: FLUoxetine 20 MG CAPSULE PO SCH (08:41)
[2021-01-08] MEDS: INSULIN LISPRO 100 UNIT/ML SUBCUT SCH ×4 (08:44→22:26)
[2021-01-08] MEDS ORDERED: QUEtiapine 100 MG TABLET PO SCH (09:00)
[2021-01-08] MEDS: ATORVASTATIN 40 MG TABLET PO SCH (09:21)
[2021-01-08] MEDS: AZTREONAM 1,000 MG in SYRINGE 1 EACH IV SCH ×2 (17:07→22:27)
[2021-01-08] MEDS ORDERED: VANCOMYCIN INJ 1,250 MG in SODIUM CHLORIDE 0.9% 250 ML IV SCH (21:00)
[2021-01-08] MEDS ORDERED: QUEtiapine 25 MG TABLET PO SCH (21:00)
[2021-01-08] MEDS: DIVALPROEX 500 MG TABLET PO SCH (21:02)
[2021-01-09] MEDS ORDERED: hydrALAZINE 20 MG/1 ML VIAL IM PRN (03:54)
[2021-01-09] MEDS: SODIUM CHLORIDE 0.9% 1,000 ML IV SCH ×3 (04:39→20:35)
[2021-01-09] MEDS: hydrALAZINE 20 MG/1 ML VIAL IV PRN (04:41)
[2021-01-09 05:23] LABS: Basophils % 0.2 % (0.0-0.8); Eosinophils # 0.3 10*3/uL (0.0-0.87); Eosinophils % 6.2 % (0.00-10.9); Hematocrit 32.5 VOL% (42.0-52.0); Hemoglobin 10.9 GM/DL (14.0-18.0); Immature Granulocytes % 0.4 %; Immature Granulocytes Absolute 0.02 #; Lymphocytes # 1.2 10*3/uL (1.4-4.0); Lymphocytes % 23.5 % (21.2-54.2); Mean Corpuscular HGB Conc 33.5 GM/DL (32-36); Mean Corpuscular Volume 87.1 FL (87-102); Mean Platelet Volume 10.4 FL (9.6-12.0); Neutrophils % 59.7 % (38.7-73.9); Platelet Count 268 T/CUMM (130-400); Red Blood Count 3.73 MC/CUMM (3.8-5.5); Red Cell Distribution Width 14.5 % (9.3-17.3); White Blood Count 5.2 T/CUMM (4-12)
[2021-01-09 05:41] LABS: Calcium 8.8 MG/DL (8.5-10.1); Osmolality,Calculated 275.7 MOS/KG (273-304); Potassium 3.7 MMOL/L (3.5-5.1)
[2021-01-09] MEDS ORDERED: MAGNESIUM SULF RIDER 4 GM in PREMIX 1 EACH IV PRN (07:24)
[2021-01-09] MEDS: CLOPIDOGREL 75 MG TABLET PO SCH (10:36)
[2021-01-09] MEDS: ASPIRIN 325 MG TABLET PO SCH (10:36)
[2021-01-09] MEDS: FLUoxetine 20 MG CAPSULE PO SCH (10:37)
[2021-01-09] MEDS: FINASTERIDE 5 MG TABLET PO SCH (10:37)
[2021-01-09] MEDS: QUEtiapine 25 MG TABLET PO SCH ×2 (10:37→20:36)
[2021-01-09] MEDS: PANTOPRAZOLE 40 MG TABLET PO SCH (10:37)
[2021-01-09] MEDS: TAMSULOSIN 0.4 MG CAPSULE PO SCH ×2 (10:37→20:36)
[2021-01-09] MEDS: METOPROLOL SUCCINATE XL 100 MG TABLET PO SCH (10:37)
[2021-01-09] MEDS: ATORVASTATIN 40 MG TABLET PO SCH (10:37)
[2021-01-09] MEDS: levETIRAcetam 500 MG TABLET PO SCH ×2 (10:37→20:36)
[2021-01-09] MEDS: AZTREONAM 1,000 MG in SYRINGE 1 EACH IV SCH ×2 (10:38→18:42)
[2021-01-09] MEDS: ENOXAPARIN 40 MG/0.4 ML SYRINGE SUBCUT SCH (10:38)
[2021-01-09] MEDS: MAGNESIUM SULF RIDER 2 GM in PREMIX 1 EACH IV PRN (10:39)
[2021-01-09] MEDS: INSULIN LISPRO 100 UNIT/ML SUBCUT SCH ×4 (11:38→20:37)
[2021-01-09] MEDS: lisinopriL 20 MG TABLET PO SCH (14:58)
[2021-01-09] MEDS ORDERED: TUBERCULIN SKIN TEST 0.1 ML SYRINGE INTRADERM ONE (15:58)
[2021-01-09] MEDS: DIVALPROEX 500 MG TABLET PO SCH (20:36)
[2021-01-10] MEDS: AZTREONAM 1,000 MG in SYRINGE 1 EACH IV SCH ×2 (01:14→06:23)
[2021-01-10] MEDS: INSULIN LISPRO 100 UNIT/ML SUBCUT SCH ×4 (07:47→20:28)
[2021-01-10] MEDS: SODIUM CHLORIDE 0.9% 1,000 ML IV SCH (09:25)
[2021-01-10] MEDS: FINASTERIDE 5 MG TABLET PO SCH (09:26)
[2021-01-10] MEDS: PANTOPRAZOLE 40 MG TABLET PO SCH (09:26)
[2021-01-10] MEDS: lisinopriL 20 MG TABLET PO SCH (09:26)
[2021-01-10] MEDS: ENOXAPARIN 40 MG/0.4 ML SYRINGE SUBCUT SCH (09:26)
[2021-01-10] MEDS: TAMSULOSIN 0.4 MG CAPSULE PO SCH ×2 (09:26→21:34)
[2021-01-10] MEDS: FLUoxetine 20 MG CAPSULE PO SCH (09:26)
[2021-01-10] MEDS: QUEtiapine 25 MG TABLET PO SCH ×2 (09:26→21:34)
[2021-01-10] MEDS: METOPROLOL SUCCINATE XL 100 MG TABLET PO SCH (09:27)
[2021-01-10] MEDS: levETIRAcetam 500 MG TABLET PO SCH ×2 (09:27→21:34)
[2021-01-10] MEDS: ASPIRIN 325 MG TABLET PO SCH (09:27)
[2021-01-10] MEDS: ATORVASTATIN 40 MG TABLET PO SCH (09:27)
[2021-01-10] MEDS: CLOPIDOGREL 75 MG TABLET PO SCH (09:31)
[2021-01-10 13:08] LABS: Basophils % 0.4 % (0.0-0.8); Eosinophils # 0.4 10*3/uL (0.0-0.87); Eosinophils % 6.6 % (0.00-10.9); Hematocrit 32.9 VOL% (42.0-52.0); Hemoglobin 11.2 GM/DL (14.0-18.0); Immature Granulocytes % 0.4 %; Immature Granulocytes Absolute 0.02 #; Lymphocytes # 1.2 10*3/uL (1.4-4.0); Lymphocytes % 22.2 % (21.2-54.2); Mean Corpuscular Volume 85.9 FL (87-102); Mean Platelet Volume 10.4 FL (9.6-12.0); Monocytes % 12.9 % (1.7-12.7); Neutrophils % 57.5 % (38.7-73.9); Platelet Count 273 T/CUMM (130-400); Red Blood Count 3.83 MC/CUMM (3.8-5.5); Red Cell Distribution Width 14.6 % (9.3-17.3); White Blood Count 5.6 T/CUMM (4-12)
[2021-01-10 13:28] LABS: Calcium 8.9 MG/DL (8.5-10.1); Osmolality,Calculated 276.7 MOS/KG (273-304); Potassium 3.8 MMOL/L (3.5-5.1)
[2021-01-10] MEDS: VANCOMYCIN INJ 1,250 MG in SODIUM CHLORIDE 0.9% 250 ML IV SCH (14:12)
[2021-01-10] MEDS: MAGNESIUM SULF RIDER 2 GM in PREMIX 1 EACH IV PRN (16:35)
[2021-01-10] MEDS: hydrALAZINE 20 MG/1 ML VIAL IV PRN (16:35)
[2021-01-10] MEDS: DIVALPROEX 500 MG TABLET PO SCH (21:34)
[2021-01-11 07:29] LABS: Basophils % 0.2 % (0.0-0.8); Eosinophils # 0.3 10*3/uL (0.0-0.87); Hematocrit 33.2 VOL% (42.0-52.0); Hemoglobin 11.1 GM/DL (14.0-18.0); Immature Granulocytes % 0.3 %; Immature Granulocytes Absolute 0.02 #; Lymphocytes # 1.3 10*3/uL (1.4-4.0); Lymphocytes % 20.2 % (21.2-54.2); Mean Corpuscular HGB Conc 33.4 GM/DL (32-36); Mean Corpuscular Volume 87.8 FL (87-102); Mean Platelet Volume 10.4 FL (9.6-12.0); Monocytes % 11.6 % (1.7-12.7); Neutrophils % 62.7 % (38.7-73.9); Platelet Count 300 T/CUMM (130-400); Red Blood Count 3.78 MC/CUMM (3.8-5.5); Red Cell Distribution Width 14.6 % (9.3-17.3); White Blood Count 6.4 T/CUMM (4-12)
[2021-01-11 07:51] LABS: Calcium 8.6 MG/DL (8.5-10.1); Osmolality,Calculated 274.7 MOS/KG (273-304); Potassium 3.7 MMOL/L (3.5-5.1)
[2021-01-11] MEDS: ENOXAPARIN 40 MG/0.4 ML SYRINGE SUBCUT SCH (07:59)
[2021-01-11] MEDS: METOPROLOL SUCCINATE XL 100 MG TABLET PO SCH (08:00)
[2021-01-11] MEDS: lisinopriL 20 MG TABLET PO SCH (08:00)
[2021-01-11] MEDS: FINASTERIDE 5 MG TABLET PO SCH (08:00)
[2021-01-11] MEDS: PANTOPRAZOLE 40 MG TABLET PO SCH (08:00)
[2021-01-11] MEDS: ATORVASTATIN 40 MG TABLET PO SCH (08:00)
[2021-01-11] MEDS: TAMSULOSIN 0.4 MG CAPSULE PO SCH (08:00)
[2021-01-11] MEDS: CLOPIDOGREL 75 MG TABLET PO SCH (08:00)
[2021-01-11] MEDS: ASPIRIN 325 MG TABLET PO SCH (08:00)
[2021-01-11] MEDS: INSULIN LISPRO 100 UNIT/ML SUBCUT SCH ×2 (08:05→11:35)
[2021-01-11] MEDS: levETIRAcetam 500 MG TABLET PO SCH (09:38)
[2021-01-11] MEDS: FLUoxetine 20 MG CAPSULE PO SCH (09:39)
[2021-01-11] MEDS: QUEtiapine 25 MG TABLET PO SCH (09:39)
[2021-01-11] MEDS: MAGNESIUM SULF RIDER 2 GM in PREMIX 1 EACH IV PRN (11:32)
[2021-01-11 11:45] VITALS: BP 147/102
[2021-01-11] MEDS ORDERED: amLODIPine 5 MG TABLET PO SCH (12:00)
[2021-01-11] MEDS: VANCOMYCIN INJ 1,250 MG in SODIUM CHLORIDE 0.9% 250 ML IV SCH (14:22)
== END 2021-01-11 15:55 | disposition home health service (06) | DRG 689 ==
LOC: EDBD → EDUNIT# → N.ED 21:44 → SUATTDRO 01-08 00:07 → N.EDINP 01-08 00:07 → N.3E 01-08 00:57
PROVIDERS: ADMIT Internal Medicine; ATTEND Internal Medicine

== ENCOUNTER 2021-01-28 20:14 | Inpatient (IN) ==
[2021-01-28] MEDS ORDERED: hydrALAZINE 20 MG/1 ML VIAL IV STA (20:57)
[2021-01-28] MEDS ORDERED: SODIUM CHLORIDE 0.9% 1,000 ML IV STA (20:57)
[2021-01-28 21:02] LABS: Basophils % 0.2 % (0.0-0.8); Eosinophils # 0.2 10*3/uL (0.0-0.87); Eosinophils % 4.4 % (0.00-10.9); Hemoglobin 11.4 GM/DL (14.0-18.0); Immature Granulocytes % 0.6 %; Immature Granulocytes Absolute 0.03 #; Lymphocytes # 1.3 10*3/uL (1.4-4.0); Lymphocytes % 25.8 % (21.2-54.2); Mean Corpuscular HGB Conc 32.6 GM/DL (32-36); Mean Corpuscular Volume 90.4 FL (87-102); Mean Platelet Volume 10.8 FL (9.6-12.0); Monocytes % 11.5 % (1.7-12.7); Neutrophils % 57.5 % (38.7-73.9); Platelet Count 245 T/CUMM (130-400); Red Blood Count 3.87 MC/CUMM (3.8-5.5); Red Cell Distribution Width 14.8 % (9.3-17.3); White Blood Count 5.2 T/CUMM (4-12)
[2021-01-28 21:12] LABS: Alanine Aminotransferase 39 U/L (16-61); Albumin 2.4 G/DL (3.4-5.0); Alkaline Phosphatase 150 U/L (45-117); Aspartate Amino Transferase 32 U/L (0-37); Bilirubin,Total < 0.39 MG/DL (0.2-1.0); Blood Urea Nitrogen 13 MG/DL (7-18); Calcium 8.2 MG/DL (8.5-10.1); Carbon Dioxide 27 MMOL/L (21-32); Estimated Glom Filtration Rate 129 ML/MIN; Glucose 226 MG/DL (74-106); Osmolality,Calculated 287.3 MOS/KG (273-304); Potassium 4.1 MMOL/L (3.5-5.1); Sodium 141 MMOL/L (136-145); Total Protein 6.9 G/DL (5.0-7.5)
[2021-01-28 21:39] LABS: Bilirubin,Urine Negative (Negative); Blood, Urine Negative (Negative); Glucose,Urine (UA) >=500 mg/dL (Negative); Ketones,Urine Negative (Negative); Mucus,Urine Occasional /LPF (Occasional); Nitrite,Urine Negative (Negative); Protein,Urine Negative; RBC,Urine 2 /HPF (0-4); Squamous Epithelial Cell,Urine Occasional /HPF (0-10); Urine Appearance CLEAR (Clear); Urine Color Yellow (Yellow); Urine Specific Gravity 1.018 (1.001-1.035); WBC,Urine 1 /HPF (0-6)
[2021-01-28] MEDS ORDERED: HALOPERIDOL 5 MG/ML AMP ONE (22:12)
[2021-01-28] MEDS ORDERED: HALOPERIDOL 5 MG/ML AMP IV STA (22:16)
[2021-01-28 23:14] LABS: Barbiturates Screen,Urine Negative (Negative); Benzodiazepines Screen,Urine Negative (Negative); Cannabinoid Screen,Urine Negative (Negative); Opiate Screen,Urine Negative (Negative); Phencyclidine Screen,Urine Negative (Negative)
[2021-01-28] MEDS ORDERED: ONDANSETRON 4 MG/2 ML VIAL IV PRN (23:36)
[2021-01-28] MEDS ORDERED: GLUCAGON 1 MG VIAL IM PRN ×2 (23:36)
[2021-01-28] MEDS ORDERED: DEXTROSE 50% 25 GM/50 ML VIAL IV PRN ×2 (23:36)
[2021-01-28] MEDS ORDERED: MAGNESIUM SULF RIDER 2 GM in PREMIX 1 EACH IV PRN (23:53)
[2021-01-28] MEDS ORDERED: MAGNESIUM SULF RIDER 4 GM in PREMIX 1 EACH IV PRN (23:53)
[2021-01-29] MEDS ORDERED: INFLUENZA VIRUS VACCINE 0.5 ML SYRINGE IM ONE (01:08)
[2021-01-29] MEDS: HALOPERIDOL 5 MG/ML AMP IV PRN (03:23)
[2021-01-29] MEDS ORDERED: MAGNESIUM SULF RIDER 4 GM in PREMIX 1 EACH IV PRN (04:46)
[2021-01-29 05:40] LABS: Basophils % 0.1 % (0.0-0.8); Eosinophils # 0.2 10*3/uL (0.0-0.87); Eosinophils % 2.9 % (0.00-10.9); Hematocrit 38.7 VOL% (42.0-52.0); Immature Granulocytes % 0.3 %; Immature Granulocytes Absolute 0.02 #; Lymphocytes # 1.4 10*3/uL (1.4-4.0); Lymphocytes % 19.3 % (21.2-54.2); Mean Corpuscular Volume 93.9 FL (87-102); Mean Platelet Volume 10.7 FL (9.6-12.0); Monocytes % 10.6 % (1.7-12.7); Neutrophils % 66.8 % (38.7-73.9); Platelet Count 253 T/CUMM (130-400); Red Blood Count 4.12 MC/CUMM (3.8-5.5); Red Cell Distribution Width 14.9 % (9.3-17.3); White Blood Count 7.4 T/CUMM (4-12)
[2021-01-29 06:04] LABS: Calcium 8.9 MG/DL (8.5-10.1); Osmolality,Calculated 286.1 MOS/KG (273-304); Potassium 3.9 MMOL/L (3.5-5.1)
[2021-01-29] MEDS: INSULIN LISPRO 100 UNIT/ML SUBCUT SCH ×4 (09:31→22:55)
[2021-01-29] MEDS: ENOXAPARIN 40 MG/0.4 ML SYRINGE SUBCUT SCH (09:32)
[2021-01-29] MEDS: TAMSULOSIN 0.4 MG CAPSULE PO SCH (22:50)
[2021-01-30] MEDS: ACETAMINOPHEN 325 MG TABLET PO PRN (02:50)
[2021-01-30 06:10] LABS: Calcium 9.5 MG/DL (8.5-10.1); Osmolality,Calculated 277.7 MOS/KG (273-304); Potassium 3.5 MMOL/L (3.5-5.1)
[2021-01-30] MEDS: ATORVASTATIN 40 MG TABLET PO SCH (09:11)
[2021-01-30] MEDS: CLOPIDOGREL 75 MG TABLET PO SCH (09:11)
[2021-01-30] MEDS: TAMSULOSIN 0.4 MG CAPSULE PO SCH ×2 (09:11→20:48)
[2021-01-30] MEDS: FINASTERIDE 5 MG TABLET PO SCH (09:12)
[2021-01-30] MEDS: METOPROLOL SUCCINATE XL 100 MG TABLET PO SCH (09:44)
[2021-01-30] MEDS: lisinopriL 20 MG TABLET PO SCH (09:45)
[2021-01-30] MEDS: DOCUSATE SODIUM 100 MG CAPSULE PO PRN (09:45)
[2021-01-30] MEDS: ASPIRIN 325 MG TABLET PO SCH (09:46)
[2021-01-30] MEDS: ENOXAPARIN 40 MG/0.4 ML SYRINGE SUBCUT SCH (09:46)
[2021-01-30] MEDS: hydrALAZINE 20 MG/1 ML VIAL IV PRN (11:35)
[2021-01-30] MEDS: INSULIN LISPRO 100 UNIT/ML SUBCUT SCH ×2 (11:51→21:01)
[2021-01-30] MEDS: HALOPERIDOL 5 MG/ML AMP IV PRN (11:57)
[2021-01-30] MEDS: LEVOFLOXACIN INJ 500 MG in PREMIX 1 EACH IV SCH (12:00)
[2021-01-30] MEDS: DIVALPROEX 250 MG TABLET PO SCH (20:48)
[2021-01-30] MEDS: levETIRAcetam 500 MG TABLET PO SCH (20:48)
[2021-01-31 06:28] LABS: Basophils % 0.1 % (0.0-0.8); Eosinophils # 0.2 10*3/uL (0.0-0.87); Eosinophils % 3.1 % (0.00-10.9); Hematocrit 35.3 VOL% (42.0-52.0); Immature Granulocytes % 0.3 %; Immature Granulocytes Absolute 0.02 #; Lymphocytes # 1.3 10*3/uL (1.4-4.0); Lymphocytes % 18.3 % (21.2-54.2); Mean Corpuscular Volume 87.6 FL (87-102); Mean Platelet Volume 10.5 FL (9.6-12.0); Monocytes % 11.6 % (1.7-12.7); Neutrophils % 66.6 % (38.7-73.9); Platelet Count 255 T/CUMM (130-400); Red Blood Count 4.03 MC/CUMM (3.8-5.5); Red Cell Distribution Width 14.9 % (9.3-17.3); White Blood Count 6.9 T/CUMM (4-12)
[2021-01-31 07:00] LABS: Albumin 2.7 G/DL (3.4-5.0); Bilirubin,Total 1.1 MG/DL (0.2-1.0); Calcium 9.6 MG/DL (8.5-10.1); Osmolality,Calculated 275.8 MOS/KG (273-304); Potassium 3.5 MMOL/L (3.5-5.1); Total Protein 7.3 G/DL (5.0-7.5)
[2021-01-31] MEDS: INSULIN LISPRO 100 UNIT/ML SUBCUT SCH ×6 (10:04→21:09)
[2021-01-31] MEDS: ASPIRIN 325 MG TABLET PO SCH (10:06)
[2021-01-31] MEDS: TAMSULOSIN 0.4 MG CAPSULE PO SCH ×2 (10:06→21:09)
[2021-01-31] MEDS: levETIRAcetam 500 MG TABLET PO SCH ×2 (10:06→21:09)
[2021-01-31] MEDS: DOCUSATE SODIUM 100 MG CAPSULE PO PRN (10:06)
[2021-01-31] MEDS: METOPROLOL SUCCINATE XL 100 MG TABLET PO SCH (10:07)
[2021-01-31] MEDS: CLOPIDOGREL 75 MG TABLET PO SCH (10:07)
[2021-01-31] MEDS: ATORVASTATIN 40 MG TABLET PO SCH (10:07)
[2021-01-31] MEDS: ENOXAPARIN 40 MG/0.4 ML SYRINGE SUBCUT SCH (10:07)
[2021-01-31] MEDS: LEVOFLOXACIN INJ 500 MG in PREMIX 1 EACH IV SCH (13:10)
[2021-01-31] MEDS: FINASTERIDE 5 MG TABLET PO SCH (13:13)
[2021-01-31] MEDS: lisinopriL 20 MG TABLET PO SCH (21:09)
[2021-01-31] MEDS: DIVALPROEX 250 MG TABLET PO SCH (21:09)
[2021-02-01] MEDS: INSULIN LISPRO 100 UNIT/ML SUBCUT SCH ×4 (08:38→21:15)
[2021-02-01] MEDS: CLOPIDOGREL 75 MG TABLET PO SCH (09:39)
[2021-02-01] MEDS: ATORVASTATIN 40 MG TABLET PO SCH (09:39)
[2021-02-01] MEDS: lisinopriL 20 MG TABLET PO SCH ×3 (09:39→23:49)
[2021-02-01] MEDS: DOCUSATE SODIUM 100 MG CAPSULE PO PRN (09:39)
[2021-02-01] MEDS: METOPROLOL SUCCINATE XL 100 MG TABLET PO SCH (09:39)
[2021-02-01] MEDS: FINASTERIDE 5 MG TABLET PO SCH (09:39)
[2021-02-01] MEDS: ASPIRIN 325 MG TABLET PO SCH (09:39)
[2021-02-01] MEDS: levETIRAcetam 500 MG TABLET PO SCH ×2 (09:39→21:14)
[2021-02-01] MEDS: LEVOFLOXACIN INJ 500 MG in PREMIX 1 EACH IV SCH (09:40)
[2021-02-01] MEDS: ENOXAPARIN 40 MG/0.4 ML SYRINGE SUBCUT SCH (09:40)
[2021-02-01] MEDS: TAMSULOSIN 0.4 MG CAPSULE PO SCH ×2 (09:40→21:14)
[2021-02-01] MEDS: DIVALPROEX 250 MG TABLET PO SCH (21:14)
[2021-02-02] MEDS: ATORVASTATIN 40 MG TABLET PO SCH (09:50)
[2021-02-02] MEDS: TAMSULOSIN 0.4 MG CAPSULE PO SCH ×2 (09:50→21:11)
[2021-02-02] MEDS: lisinopriL 20 MG TABLET PO SCH ×2 (09:50→21:11)
[2021-02-02] MEDS: FINASTERIDE 5 MG TABLET PO SCH (09:50)
[2021-02-02] MEDS: METOPROLOL SUCCINATE XL 100 MG TABLET PO SCH (09:50)
[2021-02-02] MEDS: DOCUSATE SODIUM 100 MG CAPSULE PO PRN (09:50)
[2021-02-02] MEDS: ASPIRIN 325 MG TABLET PO SCH (09:50)
[2021-02-02] MEDS: levETIRAcetam 500 MG TABLET PO SCH ×2 (09:50→21:11)
[2021-02-02] MEDS: CLOPIDOGREL 75 MG TABLET PO SCH (09:50)
[2021-02-02] MEDS: LEVOFLOXACIN INJ 500 MG in PREMIX 1 EACH IV SCH (09:51)
[2021-02-02] MEDS: ENOXAPARIN 40 MG/0.4 ML SYRINGE SUBCUT SCH (09:51)
[2021-02-02] MEDS: INSULIN LISPRO 100 UNIT/ML SUBCUT SCH ×4 (09:57→21:12)
[2021-02-02] MEDS: DIVALPROEX 250 MG TABLET PO SCH (21:10)
[2021-02-02] MEDS: ACETAMINOPHEN 325 MG TABLET PO PRN (21:11)
[2021-02-03 05:30] LABS: Basophils % 0.2 % (0.0-0.8); Eosinophils # 0.3 10*3/uL (0.0-0.87); Eosinophils % 4.7 % (0.00-10.9); Hematocrit 35.3 VOL% (42.0-52.0); Hemoglobin 11.8 GM/DL (14.0-18.0); Immature Granulocytes % 0.3 %; Immature Granulocytes Absolute 0.02 #; Lymphocytes # 1.5 10*3/uL (1.4-4.0); Lymphocytes % 23.7 % (21.2-54.2); Mean Corpuscular HGB Conc 33.4 GM/DL (32-36); Mean Platelet Volume 11.2 FL (9.6-12.0); Monocytes % 11.9 % (1.7-12.7); Neutrophils % 59.2 % (38.7-73.9); Platelet Count 255 T/CUMM (130-400); Red Blood Count 4.01 MC/CUMM (3.8-5.5); Red Cell Distribution Width 14.8 % (9.3-17.3); White Blood Count 6.4 T/CUMM (4-12)
[2021-02-03 05:41] LABS: Osmolality,Calculated 283.1 MOS/KG (273-304); Potassium 3.6 MMOL/L (3.5-5.1)
[2021-02-03] MEDS: levETIRAcetam 500 MG TABLET PO SCH ×2 (08:28→21:34)
[2021-02-03] MEDS: DOCUSATE SODIUM 100 MG CAPSULE PO PRN (08:29)
[2021-02-03] MEDS: lisinopriL 20 MG TABLET PO SCH ×2 (08:29→21:35)
[2021-02-03] MEDS: ATORVASTATIN 40 MG TABLET PO SCH (08:29)
[2021-02-03] MEDS: LEVOFLOXACIN INJ 500 MG in PREMIX 1 EACH IV SCH (08:29)
[2021-02-03] MEDS: FINASTERIDE 5 MG TABLET PO SCH (08:29)
[2021-02-03] MEDS: TAMSULOSIN 0.4 MG CAPSULE PO SCH ×2 (08:29→21:33)
[2021-02-03] MEDS: ENOXAPARIN 40 MG/0.4 ML SYRINGE SUBCUT SCH (08:30)
[2021-02-03] MEDS: METOPROLOL SUCCINATE XL 100 MG TABLET PO SCH (08:30)
[2021-02-03] MEDS: INSULIN LISPRO 100 UNIT/ML SUBCUT SCH ×4 (08:31→21:36)
[2021-02-03] MEDS: DIVALPROEX 250 MG TABLET PO SCH (21:34)
[2021-02-03] MEDS: ACETAMINOPHEN 325 MG TABLET PO PRN (21:34)
[2021-02-03] MEDS: hydrALAZINE 20 MG/1 ML VIAL IV PRN (21:45)
[2021-02-03] MEDS: HALOPERIDOL 5 MG/ML AMP IV PRN (23:09)
[2021-02-04 06:48] LABS: Bilirubin,Urine Negative (Negative); Blood, Urine Negative (Negative); Glucose,Urine (UA) Negative (Negative); Ketones,Urine 5 mg/dL (Negative); Mucus,Urine Occasional /LPF (Occasional); Nitrite,Urine Negative (Negative); Protein,Urine Negative; RBC,Urine 2 /HPF (0-4); Urine Appearance CLEAR (Clear); Urine Color Yellow (Yellow); Urine Specific Gravity 1.019 (1.001-1.035); WBC,Urine 8 /HPF (0-6)
[2021-02-04] MEDS: INSULIN LISPRO 100 UNIT/ML SUBCUT SCH ×4 (08:57→20:22)
[2021-02-04] MEDS: ATORVASTATIN 40 MG TABLET PO SCH ×2 (09:45→09:46)
[2021-02-04] MEDS: FINASTERIDE 5 MG TABLET PO SCH ×2 (09:45→09:46)
[2021-02-04] MEDS: TAMSULOSIN 0.4 MG CAPSULE PO SCH ×3 (09:45→20:20)
[2021-02-04] MEDS: METOPROLOL SUCCINATE XL 100 MG TABLET PO SCH (09:46)
[2021-02-04] MEDS: LEVOFLOXACIN INJ 500 MG in PREMIX 1 EACH IV SCH ×2 (09:46→19:05)
[2021-02-04] MEDS: levETIRAcetam 500 MG TABLET PO SCH ×2 (09:46→20:20)
[2021-02-04] MEDS: lisinopriL 20 MG TABLET PO SCH ×2 (09:46→20:20)
[2021-02-04] MEDS ORDERED: LIDOCAINE 2% TOP JELLY 20 ML VIAL INTRAURETH ONE (13:16)
[2021-02-04] MEDS ORDERED: LEVOFLOXACIN INJ 500 MG in PREMIX 1 EACH IV ONE (14:44)
[2021-02-04] MEDS: ENOXAPARIN 40 MG/0.4 ML SYRINGE SUBCUT SCH (14:56)
[2021-02-04] MEDS: DIVALPROEX 250 MG TABLET PO SCH (20:19)
[2021-02-05 06:29] LABS: Basophils % 0.3 % (0.0-0.8); Eosinophils # 0.2 10*3/uL (0.0-0.87); Eosinophils % 3.1 % (0.00-10.9); Hematocrit 36.5 VOL% (42.0-52.0); Hemoglobin 12.2 GM/DL (14.0-18.0); Immature Granulocytes % 0.4 %; Immature Granulocytes Absolute 0.03 #; Lymphocytes # 1.5 10*3/uL (1.4-4.0); Lymphocytes % 21.5 % (21.2-54.2); Mean Corpuscular HGB Conc 33.4 GM/DL (32-36); Mean Corpuscular Volume 88.4 FL (87-102); Mean Platelet Volume 10.8 FL (9.6-12.0); Neutrophils % 64.7 % (38.7-73.9); Platelet Count 285 T/CUMM (130-400); Red Blood Count 4.13 MC/CUMM (3.8-5.5); Red Cell Distribution Width 15.2 % (9.3-17.3); White Blood Count 6.9 T/CUMM (4-12)
[2021-02-05 06:51] LABS: Albumin 2.5 G/DL (3.4-5.0); Bilirubin,Total 0.9 MG/DL (0.2-1.0); Calcium 9.6 MG/DL (8.5-10.1); Osmolality,Calculated 277.5 MOS/KG (273-304); Potassium 3.6 MMOL/L (3.5-5.1)
[2021-02-05] MEDS: INSULIN LISPRO 100 UNIT/ML SUBCUT SCH ×4 (08:03→20:29)
[2021-02-05] MEDS: lisinopriL 20 MG TABLET PO SCH ×2 (08:30→20:23)
[2021-02-05] MEDS: TAMSULOSIN 0.4 MG CAPSULE PO SCH ×2 (08:31→20:18)
[2021-02-05] MEDS: FINASTERIDE 5 MG TABLET PO SCH (08:31)
[2021-02-05] MEDS: ATORVASTATIN 40 MG TABLET PO SCH (08:32)
[2021-02-05] MEDS: METOPROLOL SUCCINATE XL 100 MG TABLET PO SCH (08:32)
[2021-02-05] MEDS: levETIRAcetam 500 MG TABLET PO SCH ×2 (08:33→20:15)
[2021-02-05] MEDS: LEVOFLOXACIN INJ 500 MG in PREMIX 1 EACH IV SCH (08:35)
[2021-02-05] MEDS: DIVALPROEX 250 MG TABLET PO SCH (20:18)
[2021-02-05] MEDS: hydrALAZINE 20 MG/1 ML VIAL IV PRN (23:08)
[2021-02-06] MEDS: INSULIN LISPRO 100 UNIT/ML SUBCUT SCH ×4 (08:23→22:11)
[2021-02-06] MEDS: FINASTERIDE 5 MG TABLET PO SCH (08:25)
[2021-02-06] MEDS: ATORVASTATIN 40 MG TABLET PO SCH (08:25)
[2021-02-06] MEDS: TAMSULOSIN 0.4 MG CAPSULE PO SCH ×2 (08:25→22:10)
[2021-02-06] MEDS: METOPROLOL SUCCINATE XL 100 MG TABLET PO SCH (08:25)
[2021-02-06] MEDS: CLOPIDOGREL 75 MG TABLET PO SCH (08:25)
[2021-02-06] MEDS: lisinopriL 20 MG TABLET PO SCH ×2 (08:25→22:10)
[2021-02-06] MEDS: levETIRAcetam 500 MG TABLET PO SCH ×2 (08:26→22:11)
[2021-02-06] MEDS: LEVOFLOXACIN INJ 500 MG in PREMIX 1 EACH IV SCH (08:29)
[2021-02-06] MEDS: SULFAMETHOX/TRIMETHOPRIM 800-160 MG TABLET PO SCH ×2 (11:03→22:10)
[2021-02-06] MEDS: DIVALPROEX 250 MG TABLET PO SCH (22:10)
[2021-02-07] MEDS: lisinopriL 20 MG TABLET PO SCH (08:07)
[2021-02-07] MEDS: SULFAMETHOX/TRIMETHOPRIM 800-160 MG TABLET PO SCH (08:07)
[2021-02-07] MEDS: FINASTERIDE 5 MG TABLET PO SCH (08:08)
[2021-02-07] MEDS: levETIRAcetam 500 MG TABLET PO SCH (08:08)
[2021-02-07] MEDS: METOPROLOL SUCCINATE XL 100 MG TABLET PO SCH (08:08)
[2021-02-07] MEDS: TAMSULOSIN 0.4 MG CAPSULE PO SCH (08:08)
[2021-02-07] MEDS: ATORVASTATIN 40 MG TABLET PO SCH (08:08)
[2021-02-07] MEDS: LEVOFLOXACIN INJ 500 MG in PREMIX 1 EACH IV SCH (08:09)
[2021-02-07] MEDS: INSULIN LISPRO 100 UNIT/ML SUBCUT SCH ×2 (08:09→13:00)
[2021-02-07 12:00] VITALS: BP 122/77
[2021-02-07] MEDS ORDERED: PNEUMOCOCCAL VACCINE (13 VALENT) 0.5 ML SYRINGE IM ONE (13:06)
== END 2021-02-07 13:25 | disposition home health service (06) | DRG 71 ==
LOC: EDBD → EDUNIT# → N.ED 20:14 → N.EDINP 20:14 → N.4E 01-29 00:59
PROVIDERS: ADMIT Internal Medicine; ATTEND Internal Medicine

== ENCOUNTER 2021-02-19 08:44 | Inpatient (IN) ==
[2021-02-13 13:06] LABS: Basophils % 0.3 % (0.0-0.8); Eosinophils # 0.1 10*3/uL (0.0-0.87); Eosinophils % 1.6 % (0.00-10.9); Hematocrit 41.1 VOL% (42.0-52.0); Hemoglobin 13.8 GM/DL (14.0-18.0); Immature Granulocytes % 0.3 %; Immature Granulocytes Absolute 0.02 #; Lymphocytes # 1.6 10*3/uL (1.4-4.0); Lymphocytes % 24.7 % (21.2-54.2); Mean Corpuscular HGB Conc 33.6 GM/DL (32-36); Mean Corpuscular Volume 88.4 FL (87-102); Mean Platelet Volume 10.6 FL (9.6-12.0); Monocytes % 9.6 % (1.7-12.7); Neutrophils % 63.5 % (38.7-73.9); Platelet Count 298 T/CUMM (130-400); Red Blood Count 4.65 MC/CUMM (3.8-5.5); Red Cell Distribution Width 15.2 % (9.3-17.3); White Blood Count 6.3 T/CUMM (4-12)
[2021-02-13 13:19] LABS: INR 1.3; PT Patient Result 13.3 SECS (9.8-11.9); Partial Thromboplastin Time 30.2 SECS (23.9-33.8)
[2021-02-13 13:22] LABS: Alanine Aminotransferase 40 U/L (16-61); Albumin 3.2 G/DL (3.4-5.0); Alkaline Phosphatase 108 U/L (45-117); Aspartate Amino Transferase 34 U/L (0-37); Bilirubin,Total < 0.39 MG/DL (0.2-1.0); Blood Urea Nitrogen 13 MG/DL (7-18); Calcium 9.5 MG/DL (8.5-10.1); Carbon Dioxide 24 MMOL/L (21-32); Estimated Glom Filtration Rate 114 ML/MIN; Glucose 167 MG/DL (74-106); Osmolality,Calculated 280.5 MOS/KG (273-304); Potassium 4.2 MMOL/L (3.5-5.1); Sodium 139 MMOL/L (136-145); Total Protein 7.6 G/DL (6.4-8.2)
[~2021-02-19 08:44] MED LIST: LEVOFLOXACIN 500 MG TABLET PO ONE; cefTRIAXone 1,000 MG in SYRINGE 1 EACH IV ONE
[2021-02-19] MEDS ORDERED: VANCOMYCIN INJ 1,250 MG in SODIUM CHLORIDE 0.9% 250 ML IV ONE (10:00)
[2021-02-19 10:45] LABS: PT Patient Result 11.1 SECS (9.8-11.9)
[2021-02-19 10:56] LABS: Partial Thromboplastin Time < 20.0 SECS (23.9-33.8)
[2021-02-19] MEDS: LACTATED RINGERS 1,000 ML IV SCH (11:47)
[2021-02-19] MEDS ORDERED: NEOMYCIN/POLYMYXIN IRRIG SOLN 1 ML AMP BLADDERIRR ONE (12:06)
[2021-02-19] MEDS ORDERED: fentaNYL 100 MCG/2 ML VIAL ONE (13:22)
[2021-02-19] MEDS ORDERED: ePHEDrine 50 MG/ML VIAL ONE (13:33)
[2021-02-19] MEDS ORDERED: propofoL 200 MG/20 ML VIAL IV ONE (14:17)
[2021-02-19] MEDS ORDERED: ROCURONIUM 50 MG/5 ML VIAL IV ONE (14:17)
[2021-02-19] MEDS ORDERED: PHENYLEPHRINE 1 MG/10 ML SYRINGE IV ONE (14:17)
[2021-02-19] MEDS ORDERED: LIDOCAINE 2% 5 ML VIAL ONE (14:17)
[2021-02-19] MEDS ORDERED: SEVOFLURANE 1 UNIT/15 MINUTE INH ONE ×2 (14:18→14:28)
[2021-02-19] MEDS ORDERED: EPINEPHrine 1 MG/ML VIAL ONE (14:20)
[2021-02-19] MEDS ORDERED: NEOSTIGMINE 10 MG/10 ML VIAL ONE (14:28)
[2021-02-19] MEDS ORDERED: GLYCOPYRROLATE 0.4 MG/2 ML VIAL ONE (14:28)
[2021-02-19] MEDS ORDERED: BELLADONNA/OPIUM 30 MG SUPP RECTAL ONE (14:34)
[2021-02-19] MEDS ORDERED: BISACODYL 5 MG TABLET PO PRN (14:35)
[2021-02-19] MEDS ORDERED: PROMETHAZINE 25 MG/1 ML VIAL IM PRN (14:35)
[2021-02-19] MEDS ORDERED: ACETAMINOPHEN 325 MG TABLET PO PRN (14:35)
[2021-02-19] MEDS ORDERED: MAGNESIUM HYDROXIDE SUSP 30 ML UDCUP PO PRN (14:35)
[2021-02-19] MEDS ORDERED: ONDANSETRON 4 MG/2 ML VIAL IV PRN (14:35)
[2021-02-19] MEDS ORDERED: GLUCAGON 1 MG VIAL IM PRN (14:58)
[2021-02-19] MEDS ORDERED: DEXTROSE 50% 25 GM/50 ML VIAL IV PRN (14:58)
[2021-02-19] MEDS ORDERED: BELLADONNA/OPIUM 30 MG SUPP RECTAL PRN (15:17)
[2021-02-19] MEDS ORDERED: SIMETHICONE CHEW 80 MG TABLET PO PRN (15:19)
[2021-02-19 15:38] LABS: Basophils % 0.2 % (0.0-0.8); Eosinophils # 0.1 10*3/uL (0.0-0.87); Hematocrit 35.4 VOL% (42.0-52.0); Hemoglobin 11.6 GM/DL (14.0-18.0); Immature Granulocytes % 0.6 %; Immature Granulocytes Absolute 0.03 #; Lymphocytes # 1.2 10*3/uL (1.4-4.0); Lymphocytes % 24.6 % (21.2-54.2); Mean Corpuscular HGB Conc 32.8 GM/DL (32-36); Mean Corpuscular Volume 89.4 FL (87-102); Mean Platelet Volume 10.2 FL (9.6-12.0); Neutrophils % 62.6 % (38.7-73.9); Platelet Count 222 T/CUMM (130-400); Red Blood Count 3.96 MC/CUMM (3.8-5.5); Red Cell Distribution Width 15.2 % (9.3-17.3); White Blood Count 4.9 T/CUMM (4-12)
[2021-02-19 16:07] LABS: Osmolality,Calculated 280.7 MOS/KG (273-304); Potassium 4.9 MMOL/L (3.5-5.1)
[2021-02-19] MEDS ORDERED: HALOPERIDOL 1 MG TABLET PO PRN (16:44)
[2021-02-19] MEDS: ACETAMINOPHEN 325 MG TABLET PO SCH ×2 (16:45→21:34)
[2021-02-19] MEDS: SODIUM CHLORIDE 0.9% 1,000 ML IV SCH ×2 (16:46)
[2021-02-19] MEDS: INSULIN REGULAR 100 UNIT/ML SUBCUT SCH ×2 (16:46→21:53)
[2021-02-19] MEDS: SULFAMETHOX/TRIMETHOPRIM 800-160 MG TABLET PO SCH (21:33)
[2021-02-19] MEDS: DOCUSATE SODIUM 100 MG CAPSULE PO SCH (21:33)
[2021-02-19] MEDS: levETIRAcetam 500 MG TABLET PO SCH (21:34)
[2021-02-19] MEDS: DIVALPROEX 250 MG TABLET PO SCH (21:34)
[2021-02-19] MEDS: TAMSULOSIN 0.4 MG CAPSULE PO SCH (21:34)
[2021-02-19] MEDS: HYDROmorphone 2 MG/1 ML VIAL IV PRN (23:32)
[2021-02-20] MEDS: ACETAMINOPHEN 325 MG TABLET PO SCH ×4 (03:23→21:40)
[2021-02-20 05:58] LABS: Basophils % 0.2 % (0.0-0.8); Eosinophils # 0.2 10*3/uL (0.0-0.87); Eosinophils % 1.7 % (0.00-10.9); Hematocrit 36.5 VOL% (42.0-52.0); Hemoglobin 11.9 GM/DL (14.0-18.0); Immature Granulocytes % 0.6 %; Immature Granulocytes Absolute 0.05 #; Lymphocytes % 11.4 % (21.2-54.2); Mean Corpuscular HGB Conc 32.6 GM/DL (32-36); Mean Platelet Volume 10.6 FL (9.6-12.0); Monocytes % 9.6 % (1.7-12.7); Neutrophils % 76.5 % (38.7-73.9); Platelet Count 241 T/CUMM (130-400); Red Cell Distribution Width 15.3 % (9.3-17.3)
[2021-02-20 06:14] LABS: Calcium 9.4 MG/DL (8.5-10.1); Osmolality,Calculated 275.2 MOS/KG (273-304); Potassium 5.1 MMOL/L (3.5-5.1)
[2021-02-20] MEDS: DOCUSATE SODIUM 100 MG CAPSULE PO SCH ×2 (08:24→21:40)
[2021-02-20] MEDS: PANTOPRAZOLE 40 MG TABLET PO SCH (08:25)
[2021-02-20] MEDS: levETIRAcetam 500 MG TABLET PO SCH ×2 (08:25→21:39)
[2021-02-20] MEDS: SULFAMETHOX/TRIMETHOPRIM 800-160 MG TABLET PO SCH ×2 (08:25→21:39)
[2021-02-20] MEDS: LEVOFLOXACIN 500 MG TABLET PO SCH (08:25)
[2021-02-20] MEDS: ATORVASTATIN 40 MG TABLET PO SCH (08:26)
[2021-02-20] MEDS: INSULIN REGULAR 100 UNIT/ML SUBCUT SCH ×4 (08:26→21:39)
[2021-02-20] MEDS: TAMSULOSIN 0.4 MG CAPSULE PO SCH ×2 (08:26→21:40)
[2021-02-20] MEDS: FINASTERIDE 5 MG TABLET PO SCH (08:26)
[2021-02-20] MEDS ORDERED: metFORMIN 500 MG TABLET PO SCH (09:00)
[2021-02-20] MEDS ORDERED: lisinopriL 20 MG TABLET PO SCH (09:00)
[2021-02-20] MEDS ORDERED: METOPROLOL SUCCINATE XL 100 MG TABLET PO SCH (09:00)
[2021-02-20] MEDS: LACTATED RINGERS 1,000 ML IV SCH (10:33)
[2021-02-20] MEDS: SODIUM CHLORIDE 0.9% 1,000 ML IV SCH (12:19)
[2021-02-20] MEDS: DIVALPROEX 250 MG TABLET PO SCH (21:39)
[2021-02-21] MEDS: ACETAMINOPHEN 325 MG TABLET PO SCH ×5 (03:28→20:42)
[2021-02-21 05:42] LABS: Basophils % 0.2 % (0.0-0.8); Eosinophils # 0.2 10*3/uL (0.0-0.87); Eosinophils % 2.9 % (0.00-10.9); Hematocrit 31.1 VOL% (42.0-52.0); Hemoglobin 10.3 GM/DL (14.0-18.0); Immature Granulocytes % 0.3 %; Immature Granulocytes Absolute 0.02 #; Lymphocytes # 1.4 10*3/uL (1.4-4.0); Lymphocytes % 21.9 % (21.2-54.2); Mean Corpuscular HGB Conc 33.1 GM/DL (32-36); Mean Corpuscular Volume 88.9 FL (87-102); Mean Platelet Volume 9.8 FL (9.6-12.0); Monocytes % 10.5 % (1.7-12.7); Neutrophils % 64.2 % (38.7-73.9); Platelet Count 180 T/CUMM (130-400); Red Cell Distribution Width 15.1 % (9.3-17.3); White Blood Count 6.2 T/CUMM (4-12)
[2021-02-21 06:08] LABS: Calcium 8.6 MG/DL (8.5-10.1); Osmolality,Calculated 279.8 MOS/KG (273-304); Potassium 4.3 MMOL/L (3.5-5.1)
[2021-02-21] MEDS ORDERED: BISACODYL 10 MG SUPP RECTAL ONE (07:44)
[2021-02-21] MEDS ORDERED: MAGNESIUM SULF RIDER 2 GM in PREMIX 1 EACH IV ONE (09:34)
[2021-02-21] MEDS: SULFAMETHOX/TRIMETHOPRIM 800-160 MG TABLET PO SCH ×2 (09:59→20:20)
[2021-02-21] MEDS: PANTOPRAZOLE 40 MG TABLET PO SCH (10:00)
[2021-02-21] MEDS: TAMSULOSIN 0.4 MG CAPSULE PO SCH ×2 (10:00→20:20)
[2021-02-21] MEDS: LEVOFLOXACIN 500 MG TABLET PO SCH (10:00)
[2021-02-21] MEDS: FINASTERIDE 5 MG TABLET PO SCH (10:00)
[2021-02-21] MEDS: ATORVASTATIN 40 MG TABLET PO SCH (10:00)
[2021-02-21] MEDS: levETIRAcetam 500 MG TABLET PO SCH ×2 (10:00→20:21)
[2021-02-21] MEDS: INSULIN REGULAR 100 UNIT/ML SUBCUT SCH ×4 (10:01→20:36)
[2021-02-21] MEDS: DOCUSATE SODIUM 100 MG CAPSULE PO SCH ×2 (10:03→20:20)
[2021-02-21] MEDS: LACTATED RINGERS 1,000 ML IV SCH (11:01)
[2021-02-21] MEDS: SODIUM CHLORIDE 0.9% 1,000 ML IV SCH (12:00)
[2021-02-21] MEDS: DIVALPROEX 250 MG TABLET PO SCH (20:20)
[2021-02-22] MEDS: SODIUM CHLORIDE 0.9% 1,000 ML IV SCH ×2 (01:21→09:11)
[2021-02-22] MEDS: ACETAMINOPHEN 325 MG TABLET PO SCH ×2 (03:34→08:45)
[2021-02-22] MEDS: HYDROmorphone 2 MG/1 ML VIAL IV PRN (04:09)
[2021-02-22 06:21] LABS: Basophils % 0.2 % (0.0-0.8); Eosinophils # 0.1 10*3/uL (0.0-0.87); Eosinophils % 3.3 % (0.00-10.9); Hematocrit 30.8 VOL% (42.0-52.0); Hemoglobin 10.1 GM/DL (14.0-18.0); Immature Granulocytes % 0.2 %; Immature Granulocytes Absolute 0.01 #; Lymphocytes % 23.1 % (21.2-54.2); Mean Corpuscular HGB Conc 32.8 GM/DL (32-36); Mean Corpuscular Volume 89.5 FL (87-102); Mean Platelet Volume 10.6 FL (9.6-12.0); Monocytes % 11.4 % (1.7-12.7); Neutrophils % 61.8 % (38.7-73.9); Platelet Count 205 T/CUMM (130-400); Red Blood Count 3.44 MC/CUMM (3.8-5.5); Red Cell Distribution Width 14.9 % (9.3-17.3); White Blood Count 4.3 T/CUMM (4-12)
[2021-02-22 06:43] LABS: Calcium 8.5 MG/DL (8.5-10.1); Osmolality,Calculated 276.1 MOS/KG (273-304)
[2021-02-22 07:28] VITALS: BP 151/85
[2021-02-22] MEDS: PANTOPRAZOLE 40 MG TABLET PO SCH (08:45)
[2021-02-22] MEDS: ATORVASTATIN 40 MG TABLET PO SCH (08:45)
[2021-02-22] MEDS: DOCUSATE SODIUM 100 MG CAPSULE PO SCH (08:45)
[2021-02-22] MEDS: SULFAMETHOX/TRIMETHOPRIM 800-160 MG TABLET PO SCH (08:45)
[2021-02-22] MEDS: LEVOFLOXACIN 500 MG TABLET PO SCH (08:45)
[2021-02-22] MEDS: FINASTERIDE 5 MG TABLET PO SCH (08:45)
[2021-02-22] MEDS: levETIRAcetam 500 MG TABLET PO SCH (08:45)
[2021-02-22] MEDS: INSULIN REGULAR 100 UNIT/ML SUBCUT SCH (08:46)
[2021-02-22] MEDS: TAMSULOSIN 0.4 MG CAPSULE PO SCH (08:47)
== END 2021-02-22 10:25 | disposition home or self-care (01) | DRG 713 ==
LOC: N.OR 08:44 → N.SDSINP 08:46 → N.3E 15:56
PROVIDERS: ADMIT Surgery; ATTEND Surgery